=== PATIENT | male | born 1970 ===

== ENCOUNTER 2024-02-18 17:57 | Outpatient (REF) | payer SELFPAY ==
--- OUTSIDE RECORDS SUMMARY | 2024-02-18 18:01 | XMS_ITS | Continuity of Care Document ---
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 Name Role Phone RikiLuiz Primary Care Physician Encounter NCTY_[place] Date(s): 03/26/23 - 03/26/[address] [phone] Discharge Disposition: Home or Self Care Attending Physician: Eli Navarrete NP Admitting Physician: Eli aNvarrete NP Referring Physician: Eli Navarrete NP Allergies, Adverse Reactions, Alerts Substance Reaction Severity Status nicotine 1 Rash Unknown Active traMADol Angry outburst Fatigue Nausea Headache Unknown Active 1Has to be the clear patch Assessment and Plan Future Appointments Immunizations Given and Recorded Vaccine Date Status Refusal Reason tetanus/diphth/pertuss (Tdap) adult/adol 10/24/10 Recorded tetanus-diphth toxoids (Td) adult/adol 03/20/06 Re corded tetanus-diphth toxoids (Td) adult/adol 11/18/95 Re corded Medications betamethasone dipropionate 0.05% topical cream 1 [place], Topical, BID, # 50 g, 1 Refill(s), Pharmacy: [facility] Start Date: 02/06/23 Status: Ordered gabapentin 300 mg oral capsule 300 mg = 1 cap, Oral, TID, # 90 cap, 5 Refill(s), Pharmacy: [facility] Start Date: 02/17/23 Status: Ordered lisinopril 20 mg oral tablet 20 mg = 1 tab, Oral, Daily, # 90 tab, 3 Refill(s), Pharmacy: [facility] Start Date: 10/23/22 Status: Ordered methylphenidate 20 mg/8 hr oral tablet, extended release 20 mg = 1 tab, Oral, BID, # 60 tab, 0 Refill(s), Pharmacy: [facility] [place] Start Date: 03/18/23 Status: Ordered Problem List Condition Confirmation Course Effective Dates Status H ealth Status Informant Arthropathy Confirmed Active Asthma Confirmed Active Attention deficit hyperactivity disorder, combined type Confirmed Active Chronic constipation Confirmed Active Depressive disorder Confirmed Active Long-term current use of drug therapy Confirmed Active Generalized anxiety disorder Confirmed Active Hypertensive disorder Confirmed Active Hypertension Confirmed Active Nocturnal hypoxemia Confirmed Active Impaired fasting glucose Confirmed Active Inguinal hernia without obstruction or gangrene 1, 2 Confirmed Active Insomnia Confirmed Active Left lower quadrant pain Confirmed Active Low back pain Confirmed Active 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 Microscopic hematuria Confirmed Active Mononeuritis multiplex 3 Confirmed Active Multiple joint pain Confirmed Active Neck pain Confirmed Active Nicotine dependence Confirmed 12/17/18 Active Non-organic sleep disorder Confirmed Active Left arm numbness Confirmed Active Obesity Confirmed Active Obstructive sleep apnea, adult Confirmed Active Obstructive sleep apnea Confirmed Active Osteoarthritis Confirmed Active Left arm pain Confirmed Active Therapeutic drug monitoring assay Confirmed Active PLMD (periodic limb movement disorder) Confirmed Active Recurrent inguinal hernia Confirmed Active Restless legs syndrome Confirmed Active Sciatica Confirmed Active Social phobia Confirmed Active Tobacco user Confirmed Active 1recurrent 2unilateral 3of upper limb Procedures Procedure Date Related Diagnosis Body Site Status Repair of inguinal hernia 1 02/01/17 Completed Colonoscopy 03/19/15 Completed Arthroscopic knee operation 2 08/03/11 Completed 1bilateral, recurrent 2right knee arthroscopy, partial medial meniscectomy and chondroplasty medial tibial plateau Social History Social History Type Response Tobacco Former tobacco user Tobacco Use:. Quit smoking Mar 2022 per day. Sex Male Patient Care team information Care Team Personnel Name: Luiz Lyn MD Position: Physician Member Role: Informed Provider Address: Address: [address] [place] [id number] [place] Care Team Related Persons Name: NIKKO ZAMORA Address: Home [address] [place], [phone]
--- OUTSIDE RECORDS SUMMARY | 2024-02-18 18:01 | XMS_ITS | Continuity of Care Document ---
Author Organization [facility] Address [address] [place] [address] Care Team Providers Care Product Support Manager Name Role Phone Luiz Lyn Primary Care Physician Encounter NCTY_[place] Date(s): 01/26/23 - 01/26/[address] [phone] Discharge Disposition: Home or Self Care Attending Physician: Luiz Lyn MD Admitting Physician: Luiz yLn MD Referring Physician: Luiz Lyn MD Allergies, Adverse Reactions, Alerts Substance Reaction Severity Status nicotine 1 Rash Unknown Active traMADol Angry outburst Fatigue Nausea Headache Unknown Active 1Has to be the clear patch Assessment and Plan Future Appointments Immunizations Given and Recorded Vaccine Date Status Refusal Reason tetanus/diphth/pertuss (Tdap) adult/adol 10/24/10 Recorded tetanus-diphth toxoids (Td) adult/adol 03/20/06 Re corded tetanus-diphth toxoids (Td) adult/adol 11/18/95 Re corded Medications gabapentin 300 mg oral capsule 300 mg = 1 cap, Oral, TID, # 90 cap, 0 Refill(s), Pharmacy: [facility] [place] Start Date: 01/26/23 Status: Ordered lisinopril 20 mg oral tablet 20 mg = 1 tab, Oral, Daily, # 90 tab, 3 Refill(s), Pharmacy: [facility] [place] Start Date: 10/23/22 Status: Ordered methylphenidate 20 mg/8 hr oral tablet, extended release 20 mg = 1 tab, Oral, BID, # 60 tab, 0 Refill(s), Pharmacy: [facility] [place] Start Date: 01/26/23 Status: Ordered Problem List Condition Confirmation Course [...] 12/17/18 Active Non-organic sleep disorder Confirmed Active Obesity Confirmed Active Obstructive sleep apnea, adult Confirmed Active Obstructive sleep apnea Confirmed Active Osteoarthritis Confirmed Active Therapeutic drug monitoring assay Confirmed [...] medial meniscectomy and chondroplasty medial tibial plateau Results Laboratory List Name Date Drug Screen Urine (Drug Screen Urine w/ Reflex) 01/26/23 Most recent to oldest [Reference Range]: 1 U Amph Scrn [Negative] Negative 1 (01/26/23 5:38 PM) U Benzodia Scrn [Negative] Negative (01/26/23 5:38 PM) U Cocaine Scrn [Negative] Negative (01/26/23 5:38 PM) U Adeola Scrn [Negative] Negative (01/26/23 5:38 PM) U Opiate Scrn [Negative] Negative (01/26/23 5:38 PM) U Oxy Scrn [Negative] Negative (01/26/23 5:38 PM) U PCP Scrn [Negative] Negative (01/26/23 5:38 PM) U THC Scr [Negative] Negative (01/26/23 5:38 PM) U PPX Scr [Negative] Negative (01/26/23 5:38 PM) U Methadone Scr [Negative] Negative (01/26/23 5:38 PM) U Buprenorph Scr [Negative] Negative (01/26/23 5:38 PM) U mAMP Scr [Negative] Negative (01/26/23 5:38 PM) U TCA Scr [Negative] Negative (01/26/23 5:38 PM) 1Interpretive Data: These are unconfirmed screening results, to be used only for medical (i.e. treatment) purposes. These screening results must not be used for non-medical purposes (e.g. employment or legal testing). New method started 01/23/11 Test Name Reference Range (Cut-off) THC Neg (50 ng/mL) PCP Neg (25 ng/mL) RAYRAY Neg (150 ng/mL) MET Neg (500 ng/mL OPI Neg (100 ng/mL) AMP Neg (500 ng/mL BZO Neg (150 ng/mL) TCA Neg (300 ng/mL) MTD Neg (200 ng/mL) BAR Neg (200 ng/mL) OXY Neg (100 ng/mL) PPX Neg (300 ng/mL) BUP Neg (10 ng/mL) Social History Social History Type Response Tobacco Former tobacco user Tobacco Use:. Quit smoking Mar 2022 per day. Sex Male Patient Care team information Care Team Personnel Name: Luiz Lyn MD Position: Physician Member Role: Primary Care Physician Address: Address: [address] [place] [id number] [place] Care Team Related Persons Name: NIKKO ZAMORA Address: Home [address] [place], [phone]
--- OUTSIDE RECORDS SUMMARY | 2024-02-18 18:01 | XMS_ITS | Continuity of Care Document ---
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 Trailer Driver Name Role Phone RikiLuiz Primary Care Physician Encounter NCTY_[place] Date(s): 09/29/23 - 09/29/[address] [phone] Discharge Disposition: Home or Self Care Attending Physician: Yissel Painter APRN Admitting Physician: Yissel Painter APRN Referring Physician: Yissel Painter APRN Allergies, Adverse Reactions, Alerts Substance Reaction Severity [...] BID, # 50 g, 1 Refill(s), Pharmacy: [facility] Start Date: 02/06/23 Status: Ordered bisacodyl 5 mg oral tablet See Instructions, Take 10 mg total, # 2 tab, 0 Refill(s), 10/22/23 7:26:00 AM CDT, [facility], [facility], 05/07/23 13:24:00 EDT, Height Start Date: 09/25/23 Stop Date: 10/22/23 Status: Ordered DULoxetine 20 mg oral delayed release capsule 0 Refill(s) Start Date: 09/22/23 Status: Ordered gabapentin 300 mg oral capsule 300 mg = 1 cap, Oral, TID, # 90 cap, 5 Refill(s), Pharmacy: [facility] Start Date: 02/17/23 Status: Ordered lisinopril 20 mg oral tablet 20 mg = 1 tab, Oral, Daily, # 90 tab, 3 Refill(s), Pharmacy: [facility] Start Date: 10/23/22 Status: Ordered metFORMIN 500 mg oral tablet, extended release 0 Refill(s) Start Date: 09/22/23 Status: Ordered methylphenidate 20 mg/8 hr oral tablet, extended release 20 mg = 1 tab, Oral, BID, # 60 tab, 0 Refill(s), Pharmacy: [facility] Start Date: 04/22/23 Status: Ordered MiraLax oral powder for reconstitution 238 g, Oral, Daily, Mix 238 g in 64 oz of a clear non carbonated beverage. Avoid red beverages., # 238 g, 0 Refill(s), 10/22/23 7:25:00 AM CDT, Pharmacy: [facility], 190, cm, 05/07/23 13:24:00 EDT, Height Start Date: 09/25/23 Stop Date: 10/22/23 Status: Ordered Problem List Condition Confirmation Course Effective Dates Status H ealth Status Informant Arthropathy Confirmed Active Asthma Confirmed Active Attention deficit hyperactivity disorder, combined type Confirmed Active Chronic constipation Confirmed Active Depressive disorder Confirmed Active Long-term current use of drug therapy Confirmed Active Cubital tunnel syndrome on left Confirmed Active Generalized anxiety disorder Confirmed Active [...] phobia Confirmed Active Tobacco user Confirmed Active Varicose veins of legs Confirmed Active 1recurrent 2unilateral 3of upper limb Procedures Procedure Date Related Diagnosis Body Site Status Repair of inguinal hernia 1 02/01/17 Completed Colonoscopy 03/19/15 Completed Arthroscopic knee operation 2 08/03/11 Completed 1bilateral, recurrent 2right knee arthroscopy, partial medial meniscectomy and chondroplasty medial tibial plateau Results Laboratory List Name Date Drug Screen Urine 09/29/23 CBC w/ Diff 09/29/23 Comprehensive Metabolic Panel 09/29/23 Free T4 09/29/23 Hemoglobin A1c 09/29/23 Lipid Panel 09/29/23 Thyroid Stimulating Hormone 09/29/23 Automated Diff 09/29/23 Most recent to oldest [Reference Range]: 1 WBC [5.0-10.0 x10^3/mcL] 8.6 x10^3/mcL (09/29/23 11:52 AM) RBC [4.6-6.0 x10^6/mcL] 5.4 x10^6/mcL (09/29/23 11:52 AM) Neutro Auto [40.0-75.0 %] 57.9 % (09/29/23 11:52 AM) Lymph Auto [20.0-50.0 %] 29.9 % (09/29/23 11:52 AM) Sharp Auto [2.0-15.0 %] 10.6 % (09/29/23 11:52 AM) Basophil Auto [0.0-1.0 %] 0.5 % (09/29/23 11:52 AM) BUN [7-18 mg/dL] 17 mg/dL (09/29/23 11:52 AM) Cholesterol Total [50-200 mg/dL] 196 mg/ dL (09/29/23 11:52 AM) U Amph Scrn [Negative] Negative 1 (09/29/23 12:07 PM) LDL [0-130 mg/dL] 119 mg/dL (09/29/23 11:52 AM) Glucose Level [74-106 mg/dL] 107 mg/dL *HI* (09/29/23 11:52 AM) Potassium Level [3.5-5.1 mmol/L] 4.1 mmo l/L (09/29/23 11:52 AM) U Benzodia Scrn [Negative] Negative (09/29/23 12:07 PM) MCV [80.0-96.0 fL] 87.5 fL (09/29/23:52 AM) HDL [40-60 mg/dL] 41 mg/dL (09/29/23 11:52 AM) T4 Free [0.76-1.46 ng/dL] 0.86 ng/dL (09/29/23:52 AM) AST [15-37 unit/L] 32 unit/L (09/29/23:52 AM) ALT [16-63 unit/L] 46 unit/L (09/29/23:52 AM) MCHC [31.0-35.0 g/dL] 33.1 g/dL (09/29/23:52 AM) Sodium Level [136-145 mmol/L] 137 mmol/L (09/29/23:52 AM) Hct [41.0-51.0 %] 47.7 % (09/29/23: AM) U Cocaine Scrn [Negative] Negative (09/29/23 12:07 PM) Triglycerides [0-150 mg/dL] 182 mg/dL *HI* (09/29/23:52 AM) Calcium Level [8.5-10.1 mg/dL] 9.6 mg/dL (09/29/23:52 AM) Albumin Level [3.4-5.0 g/dL] 4.1 g/dL (09/29/23 11:52 AM) Protein Total [6.4-8.2 g/dL] 7.9 g/dL (09/29/23:52 AM) MCH [26.0-32.0 pg] 29.0 pg (09/29/23 11:52 AM) Neutro Absolute 5.0 x10^3/mcL *NA* (09/29/23:52 AM) Bilirubin Total [0.2-1.0 mg/dL] 0.7 mg/d L (09/29/23 11:52 AM) Hgb [14.0-18.0 g/dL] 15.8 g/dL (09/29/23 11:52 AM) Alk Phos [46-146 unit/L] 60 unit/L (09/29/23:52 AM) Platelets [130-450 x10^3/mcL] 260 x10^3/ mcL (09/29/23 11:52 AM) CO2 [21-32 mmol/L] 29 mmol/L (09/29/23 11:52 AM) U Adeola Scrn [Negative] Negative (09/29/23 12:07 PM) TSH [0.358-3.740 mcIntlUnit/mL] 1.394 mc IntlUnit/mL (09/29/23:52 AM) U Opiate Scrn [Negative] Negative (09/29/23 12:07 PM) eGFR Non-AA [>=60] 76 (09/29/23 11:52 AM) eGFR AA [>=60] 76 (09/29/23:52 AM) Hemoglobin A1c [4.0-5.6 %] 6.4 % 2 *HI* (09/29/23: AM) Chloride Level [98-107 mmol/L] 99 mmol/L (09/29/23: AM) U Oxy Scrn [Negative] Negative (09/29/23 12:07 PM) U PCP Scrn [Negative] Negative (09/29/23 12:07 PM) RDW-CV [11.5-14.5 %] 13.6 % (09/29/23:52 AM) U THC Scr [Negative] Negative (09/29/23 12:07 PM) U Methadone Scr [Negative] Negative (09/29/23 12:07 PM) Imm Gran Auto [0.0-0.9 %] 0.2 % (09/29/23:52 AM) U mAMP Scr [Negative] Negative (09/29/23 12:07 PM) U TCA Scr [Negative] Negative (09/29/23 12:07 PM) Creatinine Level [0.70-1.30 mg/dL] 1.15 mg/dL (09/29/23:52 AM) Eos, Auto [1.0-6.0 %] 0.9 % *LOW* (09/29/23 11:52 AM) 1Interpretive Data: These are unconfirmed screening results, [...] Neg (300 ng/mL) BUP Neg (10 ng/mL) 2Interpretive Data: New test method effective 08-18-23. Establishment of new HA1c baseline is recommended. The following A1c interpretive data reflect the 2017 Citizen [place] Diabetes Association (ADA) guidelinesand will be reported with each A1c result: Normal: <5.7% Prediabetes: 5.7 - 6.4% Diagnostic for diabetes (if confirmed): ???6.5% Social History Social History Type Response Tobacco Former tobacco user Tobacco Use:. Quit smoking Mar 2022 per day. Sex Male Patient Care team information Care Team Personnel Name: Luiz Lyn MD Position: Physician Member Role: Primary Care Physician Address: Address: [address] [place] [phone] [place] Care Team Related Persons Name: NIKKO ZAMORA Address: Home [address] [place], [phone]
--- OUTSIDE RECORDS SUMMARY | 2024-02-18 18:01 | XMS_ITS | Continuity of Care Document ---
Author Organization [facility] Address [address] [place] [address] Care Team Providers Care Water Softener Installer Name Role Phone Luiz Lyn Primary Care Physician [phone] Encounter [facility] Date(s): 02/25/23 - 04/15/[address] [address] Encounter Diagnosis Lateral epicondylitis, left elbow(Final) - Pain in left elbow(Final) - Muscle weakness (generalized)(Final) - Paresthesia of skin(Final) - Discharge Disposition: Home or Self Care Attending Physician: David Piper MD Admitting Physician: David Piper MD Referring Physician: David Piper MD Allergies, Adverse Reactions, Alerts Substance Reaction [...] BID, # 50 g, 1 Refill(s), Pharmacy: [facility] Start Date: 02/06/23 Status: Ordered gabapentin 300 mg oral capsule 300 mg = 1 cap, Oral, TID, # 90 cap, 5 Refill(s), [facility] [facility] Start Date: 02/17/23 Status: Ordered lisinopril 20 mg oral tablet 20 mg = 1 tab, Oral, Daily, # 90 tab, 3 Refill(s), Pharmacy: [facility] Start Date: 10/23/22 Status: Ordered methylphenidate 20 mg/8 hr oral tablet, extended release 20 mg = 1 tab, Oral, BID, # 60 tab, 0 Refill(s), Pharmacy: [facility] Start Date: 03/18/23 Status: Ordered Problem List [...] smoking Mar 2022 per day. Sex Male Occupational therapy Progress note * Kenzie Samuels/Clari CHT: PERFORM, MODIFY, MODIFY Event Display: Occupational Therapy Progress Note Authored Date: [id number] *Visit Type: Progress and discharge summary *Referring Diagnosis: L lateral epicondylitis *Therapy Diagnosis: L elbow pain, weakness, paresthesia *Subjective: ??Pt arrived on time for his appointment. His arm has been good and he is able to do what he needs to do at home without too much problems. He replaced the hammer with a 2.5# weight and it is working well. Patient Case History:??Pt was receiving PT to get back to an exercises routine he could do. He was doing triceps press up over his head and in front of him using bands to add resistance and experienced gradual onset of pain, starting in mid January 2023. Pt saw his PCP, referred to Dr Duong, who referred him to OT. Pertinent Past Medical History: Nicotine dependence Arthropathy Asthma Attention deficit hyperactivity disorder, combined type Chronic constipation Degenerative joint disease (DJD) of lumbar spine Depressive disorder Generalized anxiety disorder Hypertension Hypertensive disorder Impaired fasting glucose Inguinal hernia without obstruction or gangrene Insomnia Left arm numbness Left arm pain Left lower quadrant pain Long-term current use of drug therapy Low back pain Microscopic hematuria Mononeuritis multiplex Multiple joint pain Neck pain Nocturnal hypoxemia Non-organic sleep disorder Obesity Obstructive sleep apnea Obstructive sleep apnea, adult Osteoarthritis PLMD (periodic limb movement disorder) Recurrent inguinal hernia Restless legs syndrome Sciatica Social phobia Therapeutic drug monitoring assay Tobacco user Pertinent Past Surgical History: Repair of inguinal hernia: 02/02/17 Colonoscopy: 03/20/15 Arthroscopic knee operation: 08/04/11 Pertinent Medications:??NA Pertinent Allergies: nicotine (Rash) traMADol (Headache,Nausea,Fatigue,Angry outburst) Clinically Complex Situations:??Pt has multiple medical conditions with multiple sites of pain Prior Therapy:??None for this Dx Prior Diagnostic Results: None for this Dx, had NCS years ago. Prior Treatment:??Had PT for general conditioning exercises. Precautions: Standard precautions *Barriers to Education:??None identified Special Communication Needs:??None identified. Behavior:??Appropriate Occupational Profile: Current Occupation: ??Pt is not working, has not worked for ~ 3 years due to mental health issues (Type 2 personality disorder) and ADHD. Current Job Description and Requirements: Current Restrictions: Home Environment/Set Up:??Pt lives in an apartment. Household Members/Support Network: ??Pt lives at home with his and is responsible for cooking and house cleaning. Pt is exercising 4x/wk and does miniature work outside. Pt enjoys watching TV,playing video games, and taking care of his pets. Home Equipment:??NA *Previous Level of Function: ??Pt was able to use his L UE for all ADLs, sweet pickle maker things, move his arm around without difficulties, was doing 30-35# curls, 5 reps then switching arm. 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 Pain: Location: ??L lateral epicondyle area, origin of forearm extensor muscles, posterior aspect of elbow, dorsal wrist and distal aspect of forearm can be achy and stiff but not as bad as it was. Nature: ??Pain is described as burning and occasional quick sharp pain (only over lateral epicondyle area),aching pain feeling stiff. Behavior: ??Pt is taking a cheap version of Exedrin (Acetaminophen, caffein and Aspirin called Back and Body)not even once a week, taking Gabapentin, not taking any other pain meds, using [place] Forman at times Severity: ??Current pain is 2/10, at the worst it can spike to a 7-8/10 if he is doing too muc, quick spike and then down to baseline, usual average at rest during the day is ~2/10 Other: ??Sleep is baseline but pt reports stiffness and pain in the morning when waking up. Pt reports he tends to be stiff and sore in the morning, as it is for his whole body. Palpation:??Mild tenderness to palpation over L lateral epicondyle. Skin Inspection: ??wfl Edema: None at this time. Elbow ROM/Strength: R AROM L AROM R PROM L PROM R Strength L Strength Flexion ??wfl ??wfl ??5 ??5 Extension ??wfl ??wfl ??5 ??5 Supination ??wfl ??wfl ??5 ??4+ with mild discomfort Pronation ??wfl ??wfl ??5 ??5 with mild discomfort Wrist ROM/Strength: R AROM L AROM R PROM L PROM R Strength L Strength Flexion ??wfl ??wfl ??5 ??5 Extension ??wfl ??wfl ??5 ??5 with mild discomfort Ulnar Deviation ??wfl ??wfl ??5 ??5 Radial Deviation ??wfl ??wfl ??5 ??5 Elbow Special Tests: Test Right Left Elbow Flexion Test Hyperextension Test Mill???s Test/Passive Tennis Elbow Test ??(-) ?? (-) Pinch Club Room Attendant Test Cozen???s Test/Resistive Tennis Elbow Test ??(-) ??mild (+) Tinel Sign Valgus Stress Test Varus Test Maudsley Test ??(-) ??mild (+) Tello Test Resisted Elbow Extension Resisted Small Finger FDP Finger Flexion Sign Froment???s Sign Neurodynamic Tests: Median Nerve Ulnar Nerve Radial Nerve Elbow/Forearm Sensation:??Pt reports paresthesia over the dorsum of his hand and fingers and the ulnar side of his hand, has not been present in this past week, may occur occasionally. Club Room Attendant Strength (lbs): Trial #1 Trial #2 Trial #3 Average R L R L R L R L Dynamometer Position #1 Dynamometer Position #2 ??116 ??85 Dynamometer Position #3 Dynamometer Position #4 In stress position ??110 ??96 Club Room Attendant Strength Normative Values (lbs): Club Room Attendant Strength Normative Values (lbs): Male ages 50-54: right mean 113.6 with SD 18.1 and left mean 101.9 with SD 17.0 Orthosis: Pt is wearing his counterforce elbow band and his wrist orthosis all day when he uses hisarm, taking it off in the evening. Upper Quadrant Screen: B shoulder AROM wfl but pt reports bursitis in B shoulders *Patient Education: OT POC consisting of discharge from OT at this time, gradual weaning of counterforce elbow band and wrist orthosis as tolerated, continue with his exercise program, review of bodymechanics and importance of avoiding tension over forearm extensor muscle. Previously provided education: Home program updated with active stretch #3, resistive wrist flex/ext, elbow flex/ext, pro/sup and resistive lymphedema therapist therex, purpose and wear and care of wrist cock up to be worn continuously except during hygiene and exercises., pt to perform active stretch #2 with cuesto avoid burning sensation, correct technique for active stretch #3, purpose and wear and care of kinesiology tape, patient to bring in his wrist orthosis at next session to assess fit., active stretches, goal and purpose of IASTM, self IASTM technique including avoiding bony prominences and anterior elbow,??OT plan of care, wear and care of counterforce elbow band, manual massage and use of heat over left forearm and elbow, body mechanics education including lifting items close to his body, with his palm down. *Occupational Therapy Assessment: Patient is a 52 years old man referred to OT by Dr. Duong with a diagnosis of left lateral epicondylitis. He reports onset in mid January 2023 when he was working outlifting weights up to 35 pounds. Patient lives at home with his and is receiving disabilities.Patient has made significant progress since his last progress summary 2 weeks ago as evidenced by decreased pain which is now minimal, decreased burning sensation at rest, increased wrist strength and no pain with resistive exercises/activities, along with decreased functional difficulties at home.We agreed that patient has gained maximum benefit from skilled OT services and will therefore be discharged from OT at this time. Intervention consisted of manual therapy, ultrasound, body mechanics education, therapeutic exercises, home program, provision of counterforce elbow band and wrist orthosis, along with patient education, for a total of 11 visits, between 03/03/2023 and today. *Rehab Potential: NA *Functional Outcome Measure: FOM: Patient Rated Tennis Elbow Evaluation (PRTEE) ? Score: Current impairment level is 27.5% (compared to 37.5% on his last progress summary and 71.5% on his IE)), with patient reporting difficulty with turning a door knob, carrying a grocery bag, lifting a full cup to his mouth, opening a jar, wringing out a washcloth, personal activities, andrecreational activities including video games. Please note that patient is not wearing his wrist brace anymore when lifting a full cup to his mouth or opening a jar. *Short Term Goals: Deferred to long-term goals. *Facility Environmental Technician Goals: In 6 weeks: #1 patient will be pain-free at rest, and will report decreased pain to 3 out of 10 at the worst when cooking---MET #2 left supination, pronation, and wrist extension strength will increase to 4/5 and be pain-free, to allow patient to perform all cooking and house chores tasks---MET *Patient Goals: Get back to working out---MET, have no pain in her L elbow---MET but may have some occasional pain in his forearm muscles, only very occasional twinges in his elbow so pt feels this is MET as well. *Frequency of Treatment: NA *Intensity of Treatment (minutes):??NA *Duration of Treatment (days/weeks):??NA *Planned Treatment Interventions: NA CPT 43620: Therapeutic Exercise CPT 06782: Electrical Stimulation CPT 79787: Therapeutic Activity CPT G0283: Electrical Stimulation CPT 26772: Manual Therapy CPT 14144: Massage CPT 76696: Gait Training CPT 69533: Biofeedback CPT 29395: Neuromuscular Re-education CPT 84922: Sensory Integration CPT 25439: Self-Care/Home Management CPT 61665: Physical Performance Test CPT 24803: Ultrasound CPT 37316: Initial Orthotic Fit/Train CPT 22529: Initial Prosthetic Train *Discharge Plan: Discharge OT at this time. *Procedure Documentation: CPT 41906: Therapeutic Exercise:??34?? minutes Therapeutic exercise to promote improved joint stability, strength, endurance, and range of motion for functional ADL???s such as picking up a grocery bag: Specific education/training provided for proper technique. Measurement taken for progress summary. Home program verbally reviewed. Plan: Patient will continue with his home program only, including wearing orthosis and counterforceelbow band, using proper body mechanics and exercises. *Total Time: 34 minutes *Time In: 07:31 *Time Out: 08:05 Electronically Signed on 04/15/23 11:46 AM Kenzie Samuels/L CHT Reviewed by: Krystal Gracia Johanne OTR/L CHT: MODIFY, PERFORM, MODIFY, MODIFY Event Display: Occupational Therapy Progress Note Authored Date: [id number] *Visit Type: OT treatment *Referring Diagnosis: L lateral epicondylitis *Therapy Diagnosis: L elbow pain, weakness, paresthesia *Subjective: Pt saw Dr Duong on 04.06.23. He was happy with the progress so did not have an injection. He was told to continue with what he is doing and he can call back if he runs into problems. He can now sweet pickle maker the frying chaves with food in it without too much problems if he is wearing his brace. But if he does not wear it, it will burn. He was able to put dishes away and get ready this morning without his brace and did ok. Wrist stretches are easier and do not burn. But he still feels weakand stiff. Patient Case History:??Pt was receiving PT to get back to an exercises routine he could do. He was doing triceps press up over his head and in front of him using bands to add resistance and experienced gradual onset of pain, starting in mid January 2023. Pt saw his PCP, referred to Dr Duong, who referred him to OT. Precautions: Standard Pain: Current pain is 3/10, at the highest in the past week it was 10/10 when moving the wrong way or trying to do too much. *Objective Measures and Interventions: CPT 70470: Ultrasound (1:1):?10 minutes Ultrasound to promote tissue relaxation, local blood flow, scar tissue remodeling, and to reduce local swelling, chronic inflammation and pain within the following parameters: 50%?ultrasound treatment (#8) at 0.8?w/cm2 at 3?Mhz for the following location and time (min): L lateral epicondyle area x6 minutes CPT 32796: Therapeutic Exercise:??15 minutes Therapeutic exercise to promote improved joint stability, strength, endurance, and range of motion for functional ADL???s such as cooking. Specific education/training provided for proper technique. Active stretch #4 3x with no discomfort Passive stretch #1, #2, #3, with #3 being the most appropriate tension x3 Resistive lymphedema therapist therex using red putty 15x Resistive wrist flex/ext using green tubing, 15x each Resistive pro/sup using 20 oz hammer, 10x each with cues to maintain wrist neutral Resistive elbow flex/ext using green tubing 15x CPT 79126: Manual Therapy:??5 minutes Manual therapy to decrease tissue tension, decrease pain, decrease edema, promote healthy joint mobility and improve range of motion for functional ADL???s such as carrying grocery bags. Treatment techniques utilized today included: IASTM to L forearm extensor muscles and triceps, with UE positioned in pronation using concave surface of the instrument, applied at 45* angle, with moderate to max pressure applied, for middle/deep fascia, lotion used as skin lubricant, with curvilinear strokes, well tolerated with minimal tightness.. *Patient??Education: Home program updated with active stretch #3, resistive wrist flex/ext, elbow flex/ext, pro/sup and resistive lymphedema therapist therex as per written information provided. Previously Provided Education: Purpose and wear and care of wrist cock up to be worn continuously except during hygiene and exercises., pt to perform active stretch #2 with cues to avoid burning sensation, correct technique for active stretch #3, purpose and wear and care of kinesiology tape, patient to bring in his wrist orthosis at next session to assess fit., active stretches, goal and purposeof IASTM, self IASTM technique including avoiding bony prominences and anterior elbow,??OT plan of care, wear and care of counterforce elbow band, manual massage and use of heat over left forearm andelbow, body mechanics education including lifting items close to his body, with his palm down. *Occupational Therapy Assessment:??Pt is progressing as evidenced by decreased pain and increased ability to use his L UE for cooking tasks, with and without his wrist orthosis and his counterforce elbow band. He demonstrated good understanding of his home program. *Plan:??Assess review and update home program, monitor response to strengthening therex, continue with US and MT as appropriate. *Total Time: 30 minutes *Time In: 07:59 *Time Out: 08:29 Electronically Signed on 04/08/23 08:39 AM Kenzie Samuels OTR/L CHT * Kenzie Samuels OTR/L CHT: PERFORM, MODIFY, MODIFY, MODIFY, MODIFY, MODIFY, MODIFY, MODIFY Event Display: Occupational Therapy Progress Note Authored Date: [id number] *Visit Type: Progress summary *Referring Diagnosis: L lateral epicondylitis *Therapy Diagnosis: L elbow pain, weakness, paresthesia *Subjective: ??Pt arrived on time for his appointment. His arm is not as sore, and it does not burnas much. It looks like the wrist brace is helping. Will see Dr Duong on 04.06.23. Patient Case History:??Pt was receiving PT to get back to an exercises routine he could do. He was doing triceps press up over his head and in front of him using bands to add resistance and experienced gradual onset of pain, starting in mid January 2023. Pt saw his PCP, referred to Dr Duong, who referred him to OT. Pertinent Past Medical History: Nicotine dependence Arthropathy Asthma Attention deficit hyperactivity disorder, combined type Chronic constipation Degenerative joint disease (DJD) of lumbar spine Depressive disorder Generalized anxiety disorder Hypertension Hypertensive disorder Impaired fasting glucose Inguinal hernia without obstruction or gangrene Insomnia Left arm numbness Left arm pain Left lower quadrant pain Long-term current use of drug therapy Low back pain Microscopic hematuria Mononeuritis multiplex Multiple joint pain Neck pain Nocturnal hypoxemia Non-organic sleep disorder Obesity Obstructive sleep apnea Obstructive sleep apnea, adult Osteoarthritis PLMD (periodic limb movement disorder) Recurrent inguinal hernia Restless legs syndrome Sciatica Social phobia Therapeutic drug monitoring assay Tobacco user Pertinent Past Surgical History: Repair of inguinal hernia: 02/02/17 Colonoscopy: 03/20/15 Arthroscopic knee operation: 08/04/11 Pertinent Medications:??NA Pertinent Allergies: nicotine (Rash) traMADol (Headache,Nausea,Fatigue,Angry outburst) Clinically Complex Situations:??Pt has multiple medical conditions with multiple sites of pain Prior Therapy:??None for this Dx Prior Diagnostic Results: None for this Dx, had NCS years ago. Prior Treatment:??Had PT for general conditioning exercises. Precautions: Standard precautions *Barriers to Education:??None identified Special Communication Needs:??None identified. Behavior:??Appropriate Occupational Profile: Current Occupation: ??Pt is not working, has not worked for ~ 3 years due to mental health issues (Type 2 personality disorder) and ADHD. Current Job Description and Requirements: Current Restrictions: Home Environment/Set Up:??Pt lives in an apartment. Household Members/Support Network: ??Pt lives at home with his and is responsible for cooking and house cleaning. Pt is exercising 4x/wk and does miniature work outside. Pt enjoys watching TV,playing video games, and taking care of his pets. Home Equipment:??NA *Previous Level of Function: ??Pt was able to use his L UE for all ADLs, sweet pickle maker things, move his arm around without difficulties, was doing 30-35# curls, 5 reps then switching arm. *Current Level of Function:??Pt reports difficulty with holding a frying chaves if there is food in it(it's a bit more manageable), picking up grocery bags and gallon of milk (definitely not as bad with the wrist brace on) is also the same, driving (easier now), house chores (also easier), any use ofhis L arm is painful making all ADLs difficult but it has been a lot easier with the wrist brace, di fficult to pinch and hold at the same time like holding cards or a piece of paper. Overall his arm is much better. Pain: Location: ??L lateral epicondyle area, origin of forearm extensor muscles, posterior aspect of elbow, dorsal wrist and distal aspect of forearm can be achy but not as bad as it was. Nature: ??Pain is described as burning and occasional stabbing pain (only over lateral epicondyle area), throbbing and aching pain, present at rest and worse with use and toward the end of the day. Behavior: ??Pt is taking a cheap version of Exedrin (Acetaminophen, caffein and Aspirin called Back and Body)maybe a couple times a week, not taking any other pain meds, using [place] Forman at times Severity: ??Current pain is 3/10, at the worst it can spike to a 10/10 if he bumps it or if he tries to do too much, usually at rest if he has not done too much during the day, it is about 5-6/10 Other: ??Sleep is sometimes disturbed due to his arm, especially when he gets up in the morning (stiffnessand pain in the morning when waking up). Pt reports he tends to be stiff and sore in the morning, as it is for his whole body. Palpation:??Tenderness to palpation over L lateral epicondyle, to a lesser extent in forearm extensor muscles (with pt reporting an ache with palpation) Skin Inspection: ??wfl Edema:Pt reports increased edema in L elbow toward the end of the day, it feels bigger. None significant at this time. Elbow ROM/Strength: R AROM L AROM R PROM L PROM R Strength L Strength Flexion ??wfl ??wfl ??5 ??5 Extension ??wfl ??wfl but sore at end range (not burning anymore) ??5 ??5 Supination ??wfl ??wfl ??5 ??4 with mild burning )not as bad as it was) Pronation ??wfl ??wfl ??5 ??4 with mild burning AROM wfl Wrist ROM/Strength: R AROM L AROM R PROM L PROM R Strength L Strength Flexion ??wfl ??wfl ??5 ??5 Extension ??wfl ??wfl ??5 ??5 with mild burning Ulnar Deviation ??wfl ??wfl ??5 ??5 with mild burning Radial Deviation ??wfl ??wfl ??5 ??5 with burning Elbow Special Tests: Test Right Left Elbow Flexion Test Hyperextension Test Mill???s Test/Passive Tennis Elbow Test ??(-) ?? (-) Pinch Club Room Attendant Test Cozen???s Test/Resistive Tennis Elbow Test ??(-) ??mild (+) Tinel Sign Valgus Stress Test Varus Test Maudsley Test ??(-) ??mild (+) Tello Test Resisted Elbow Extension Resisted Small Finger FDP Finger Flexion Sign Froment???s Sign Neurodynamic Tests: Median Nerve Ulnar Nerve Radial Nerve Elbow/Forearm Sensation:??Pt reports decreased paresthesia over the dorsum of his hand and fingers,including the ulnar side of his hand, comes and goes, has been present since December. Club Room Attendant Strength (lbs): Trial #1 Trial #2 Trial #3 Average R L R L R L R L Dynamometer Position #1 Dynamometer Position #2 ??134 ??93 with mild pain Dynamometer Position #3 Dynamometer Position #4 In stress position ??130 ??89 with mild pain Club Room Attendant Strength Normative Values (lbs): Club Room Attendant Strength Normative Values (lbs): Male ages 50-54: right mean 113.6 with SD 18.1 and left mean 101.9 with SD 17.0 Orthosis: Pt is wearing his counterforce elbow band and his wrist orthosis all day when he uses hisarm, taking it off in the evening. He is unsure about the kinesiology tape as it does not stay on very long. Upper Quadrant Screen: B shoulder AROM wfl but pt reports bursitis in B shoulders *Patient Education: OT POC, progression of conservative management protocol Previously provided education: Purpose and wear and care of wrist cock up to be worn continuously except during hygiene and exercises., pt to perform active stretch #2 with cues to avoid burning sensation, correct technique for active stretch #3, purpose and wear and care of kinesiology tape, patient to bring in his wrist orthosis at next session to assess fit., active stretches, goal and purposeof IASTM, self IASTM technique including avoiding bony prominences and anterior elbow,??OT plan of care, wear and care of counterforce elbow band, manual massage and use of heat over left forearm andelbow, body mechanics education including lifting items close to his body, with his palm down. *Occupational Therapy Assessment: Patient is a 52 years old man referred to OT by Dr. Duong with a diagnosis of left lateral epicondylitis. He reports onset in mid January 2023 when he was working outlifting weights up to 35 pounds. Patient lives at home with his and is receiving disabilities.Patient has made significant progress since his last progress summary 2 weeks ago as evidenced by increased lymphedema therapist strength, decreased pain which he attributes mostly to wearing his wrist orthosis, decreased burning sensation at rest, increased wrist strength, along with decreased functional difficulties at home. We agreed that pt is still a good candidate for skilled OT services to maximize left upper extremity function, control pain and allow him to be independent with all of his ADLs at home. *Rehab Potential: Good?to reach the established goals *Functional Outcome Measure: FOM: Patient Rated Tennis Elbow Evaluation (PRTEE) ? Score: Current impairment level is 37.5% (compared to 71.5% on his last progress summary), with patient reporting difficulty with turning a door knob, carrying a grocery bag, wringing out a washcloth, personal activities, and recreational activities including video games. *Short Term Goals: In 4 weeks: #1 patient will report decreased pain to 2 out of 10 at the worst when at rest---NOT MET yet #2 patient will report decreased pain to 5 out of 10 at the worst when carrying a light grocery bag---MET #3 left supination strength will increase to 4/5 to facilitate cooking task---MET #4 left lymphedema therapist strength will increase by 10 pounds and be pain-free to allow him to open jars---MET with his wrist brace on #5 patient will be independent and adhere to his home program as evidenced by demonstration of proper technique---MET Deferred to long-term goals. *Facility Environmental Technician Goals: In 6 weeks: #1 patient will be pain-free at rest, and will report decreased pain to 3 out of 10 at the worst when cooking---NOT MET yet but making progress #2 left supination, pronation, and wrist extension strength will increase to 4/5 and be pain-free, to allow patient to perform all cooking and house chores tasks---MAKING PROGRESS Above LTGs are still appropriate with a new time frame of 4 weeks *Patient Goals: Get back to working out, have no pain in her L elbow---MAKING PROGRESS *Frequency of Treatment: Once a week *Intensity of Treatment (minutes):??30 minutes *Duration of Treatment (days/weeks):??4 weeks *Planned Treatment Interventions: X CPT 45701: Therapeutic Exercise will focus on home program, wrist stretches, resistive exercises astolerated, kinesiology tape as appropriate, will use conservative management protocol as a guideline CPT 30257: Electrical Stimulation X CPT 69819: Therapeutic Activity body mechanics education, activity modification as appropriate CPT G0283: Electrical Stimulation X CPT 61306: Manual Therapy STM, IASTM as appropriate CPT 72894: Massage CPT 79166: Gait Training CPT 22454: Biofeedback CPT 50807: Neuromuscular Re-education CPT 43451: Sensory Integration CPT 48514: Self-Care/Home Management CPT 16111: Physical Performance Test X CPT 32105: Ultrasound 3 MHz 50% pulsed 0.8 W/cm?? x 6-minute over left lateral epicondyle area appropriate CPT 03824: Initial Orthotic Fit/Train CPT 90798: Initial Prosthetic Train *Discharge Plan: Upon achieving goals or maximal benefit of therapy services. *Procedure Documentation: CPT 22645: Therapeutic Exercise:??28?? minutes Therapeutic exercise to promote improved joint stability, strength, endurance, and range of motion for functional ADL???s such as picking up a grocery bag: Specific education/training provided for proper technique. Measurement taken for progress summary. CPT 73213: Ultrasound (1:1):??10??minutes Ultrasound to promote tissue relaxation, local blood flow, scar tissue remodeling, and to reduce local swelling, chronic inflammation and pain within the following parameters: 50%?ultrasound treatment (#7) at 0.8?w/cm2 at 3?Mhz for the following location and time (min): L lateral epicondyle area x6 minutes CPT 10174: Manual Therapy:??10 minutes Manual therapy to decrease tissue tension, decrease pain, decrease edema, promote healthy joint mobility and improve range of motion for functional ADL???s such as carrying grocery bags: Treatment techniques utilized today included: IASTM to L forearm extensor muscles and triceps, with UE positioned in pronation using concave surface of the instrument, applied at 45* angle, with mod/max pressure applied, for middle/deep fascia, lotion used as skin lubricant, with linear strokes, well tolerated with mild/moderate tightness. *Total Time: 48 minutes *Time In: 09:42 *Time Out: 10:30 Electronically Signed on 04/02/23 01:48 PM Kenzie Samuels/Clari CHT Reviewed by: Krystal Gracia Patient Care team information Care Team Personnel Name: Luiz Lyn MD Position: Physician Member Role: Informed Provider Address: Address: [address] [place] [phone] [place] Care Team Related Persons Name: NIKKO ZAMORA Address: [address], [id number]
--- OUTSIDE RECORDS SUMMARY | 2024-02-18 18:01 | XMS_ITS | Continuity of Care Document ---
Author Organization [facility] Address [address] [place] [address] Care Team Providers Care Furnace Converter Name Role Phone Yissel Painter Primary Care Physician Encounter [facility] Date(s): 04/20/23 - 04/20/[address] [address] Discharge Disposition: Home or Self Care Attending [...] BID, # 50 g, 1 Refill(s), Pharmacy: [facility] Start Date: 02/06/23 Status: Ordered gabapentin 300 mg oral capsule 300 mg = 1 cap, Oral, TID, # 90 cap, 5 Refill(s), Pharmacy: [facility] Start Date: 02/17/23 Status: Ordered lisinopril 20 mg oral tablet 20 mg = 1 tab, Oral, Daily, # 90 tab, 3 Refill(s), Pharmacy: [facility] Start Date: 10/23/22 Status: Ordered methylphenidate 20 mg/8 hr oral tablet, extended release 20 mg = 1 tab, Oral, BID, # 60 tab, 0 Refill(s), Pharmacy: [facility] Start Date: 03/18/23 Status: Ordered Problem List [...] tibial plateau Results Laboratory List Name Date CBC w/ Diff 04/20/23 Comprehensive Metabolic Panel 04/20/23 Hemoglobin A1c 04/20/23 Lipid Panel 04/20/23 NT- Pro BNP 04/20/23 PSA Screen 04/20/23 Troponin-I 04/20/23 Automated Diff 04/20/23 Most recent to oldest [Reference Range]: 1 WBC [5.0-10.0 x10^3/mcL] 7.3 x10^3/mcL (04/20/23 9:41 AM) RBC [4.6-6.0 x10^6/mcL] 5.4 x10^6/mcL (04/20/23 9:41 AM) Neutro Auto [40.0-75.0 %] 55.2 % (04/20/23:41 AM) Lymph Auto [20.0-50.0 %] 32.3 % (04/20/23 9:41 AM) [place] Auto [2.0-15.0 %] 10.5 % (04/20/23: AM) Basophil Auto [0.0-1.0 %] 0.4 % (04/20/23:41 AM) BUN [7-18 mg/dL] 12 mg/dL (04/20/23 AM) Cholesterol Total [50-200 mg/dL] 167 mg/ dL (04/20/23:41 AM) LDL [0-130 mg/dL] 97 mg/dL (04/20/23:41 AM) Glucose Level [74-106 mg/dL] 101 mg/dL (04/20/23: AM) Potassium Level [3.5-5.1 mmol/L] 4.1 mmo l/L (04/20/23 AM) MCV [80.0-96.0 fL] 87.6 fL (04/20/23: AM) HDL [40-60 mg/dL] 37 mg/dL *LOW* (04/20/23: AM) AST [15-37 unit/L] 21 unit/L (04/20/23 AM) ALT [16-63 unit/L] 45 unit/L (04/20/23:41 AM) MCHC [31.0-35.0 g/dL] 33.5 g/dL (04/20/23 AM) Troponin-I [0.0-76.2 pg/mL] <5.0 pg/mL (04/20/23:41 AM) Sodium Level [136-145 mmol/L] 138 mmol/L (04/20/23:41 AM) Hct [41.0-51.0 %] 47.2 % (04/20/23 AM) Triglycerides [0-150 mg/dL] 166 mg/dL *HI* (04/20/23: AM) Calcium Level [8.5-10.1 mg/dL] 9.3 mg/dL (04/20/2341 AM) Albumin Level [3.4-5.0 g/dL] 4.1 g/dL (04/20/23 9:41 AM) Protein Total [6.4-8.2 g/dL] 8.0 g/dL (04/20/23 9:41 AM) MCH [26.0-32.0 pg] 29.3 pg (04/20/23 9:41 AM) Neutro Absolute 4.0 x10^3/mcL *NA* (04/20/23:41 AM) Bilirubin Total [0.2-1.0 mg/dL] 0.6 mg/d L (04/20/23 9:41 AM) Hgb [14.0-18.0 g/dL] 15.8 g/dL (04/20/23 9:41 AM) Alk Phos [46-146 unit/L] 75 unit/L (04/20/23 9:41 AM) Platelets [130-450 x10^3/mcL] 273 x10^3/ mcL (04/20/23 9:41 AM) CO2 [21-32 mmol/L] 28 mmol/L (04/20/23 9:41 AM) eGFR Non-AA [>=60] 85 (04/20/23 9:41 AM) eGFR AA [>=60] 85 (04/20/23 9:41 AM) Hemoglobin A1c [4.0-6.0 %] 6.4 % *HI* (04/20/23 9:41 AM) NT-proBNP [0-125 pg/mL] 55 pg/mL (04/20/23:41 AM) Chloride Level [98-107 mmol/L] 102 mmol/ L (04/20/23:41 AM) RDW-CV [11.5-14.5 %] 13.2 % (04/20/23 9:41 AM) Imm Gran Auto [0.0-0.9 %] 0.4 % (04/20/23:41 AM) Slide Review Not Indicated (04/20/23:41 AM) Creatinine Level [0.70-1.30 mg/dL] 1.05 mg/dL (04/20/23 9:41 AM) PSA Total Screening [0.00-4.00 ng/mL] 0. 75 ng/mL 2 (04/20/23 9:41 AM) Eos, Auto [1.0-6.0 %] 1.2 % (04/20/23 9:41 AM) 2Interpretive Data: The testing method is an heterogeneous enzyme Immunoassay manufactured by [employer] and performed on the SMGBB system. Values obtained with different assay methods or kits may be different and cannot be used interchangeably. Test results cannot be interpreted as absolute evidence for the presence or absence of malignant disease. Social History Social History Type Response Tobacco Former tobacco user Tobacco Use:. Quit smoking Mar 2022 per day. Sex Male Patient Care team information Care Team Personnel Name: Luiz Lyn MD Position: Physician Member Role: Informed Provider Address: Address: [address] [place] [phone] Name: Yissel Painter APRN Position: No Access Member Role: Primary Care Physician Address: Address: [employer] [address] [address] [place] Care Team Related Persons Name: NIKKO ZAMORA Address: Home [address] [place], [id number]
--- OUTSIDE RECORDS SUMMARY | 2024-02-18 18:02 | XMS_ITS | Continuity of Care Document ---
Author Organization [facility] Address [address] [place] [address] Care Team Providers Care Leather Sorter Name Role Phone Luiz Lyn Primary Care Physician [facility] Date[facility] 05/07/23 - 05/07/23 [facility] [address] [place] [address] Encounter Diagnosis Nocturnal hypoxemia(Discharge Diagnosis) - 05/07/23 Obstructive sleep apnea, adult(Discharge Diagnosis) - 05/07/23 Discharge Disposition: Home or Self Care Attending Physician: Eli Navarrete INSTRUMENT CHECKER Allergies, Adverse Reactions, Alerts Substance Reaction Severity [...] BID, # 50 g, 1 Refill(s), [place] [facility] [place]: 02/06/23 Status: Ordered gabapentin 300 mg oral capsule 300 mg = 1 cap, Oral, TID, # 90 cap, 5 Refill(s), [place] [facility] [place]: 02/17/23 Status: Ordered lisinopril 20 mg oral tablet 20 mg = 1 tab, Oral, Daily, # 90 tab, 3 Refill(s), [place] [facility] [place]: 10/23/22 Status: Ordered methylphenidate 20 mg/8 hr oral tablet, extended release 20 mg = 1 tab, Oral, BID, # 60 tab, 0 Refill(s), [place] [facility] [place]: 04/22/23 Status: Ordered Problem List Condition Confirmation Course [...] medial meniscectomy and chondroplasty medial tibial plateau Vital Signs Most recent to oldest [Reference Range]: 1 Peripheral Pulse Rate [60-100 bpm] 91 bp m (05/07/23 1:24 PM) Blood Pressure [90-140/60-90 mmHg] 141/6 7mmHg *HI* (05/07/23 1:24 PM) Mean Arterial Pressure, Cuff [65-140 mmH g] 92 mmHg (05/07/23 1:24 PM) Weight 140.61 kg (05/07/23 1:24 PM) Weight Measured (lbs) 309.992 lb (05/07/23 1:24 PM) Height 190 cm (05/07/23 1:24 PM) Height/Length Measured (inches) 74.8 inc h (05/07/23 1:24 PM) BSA Measured 2.72 m2 (05/07/23 1:24 PM) Body Mass Index 38.95 kg/m2 (05/07/23 1:24 PM) Social History Social History Type Response Tobacco Former tobacco user Tobacco Use:. Quit smoking Mar 2022 per day. Sex Male Progress note * Cande Houston R: PERFORM Event Display: Progress Note - Physician Authored Date: [id number] * Cande Houston R: PERFORM Event Display: Progress Note - Physician Authored Date: [id number] * Cande Houston R: PERFORM Event Display: Progress Note - Physician Authored Date: [id number] Physician Outpatient Note * Eli Navarrete INSTRUMENT CHECKER: PERFORM Event Display: Office Clinic Note Physician Authored Date: [id number] CHIDI ZAMORA :1970 Age:52 years Sex:Male Visit Date:05/07/2023 Primary Care Physician: Luiz Lyn MD Chief Complaint titration psg results History of Present Illness 52 years??male??here for sleep study results ?? TODAY: Patient is using his CPAP nightly, trying to get more total sleep hours at night. His titration study went well. ?? He recently saw Dr. Naylor for cardiology for dizzy spells. He started seeing a new PCP, Dr. Painter Review of Systems A 10-point REVIEW OF SYSTEM was obtained and reviewed, includes CONSTITUTIONAL, EYES, NOSE, THROAT,RESPIRATORY, HEART, GASTROINTESTINAL, UROLOGIC, MUSCULOSKELETAL, PSYCHIATRY, SKIN systems. Pertinent symptoms are discussed in history, otherwise negative. Physical Exam Vitals & Measurements HR:??91??(Peripheral)?? BP:??141/67?? SpO2:??94%?? HT:??190??cm?? WT:??140.61??kg?? BMI:??38.95?? BSA:??2.72?? General:??well appearing, appearing stated age, no acute distress,??obese??build HEENT: atraumatic skull, anicteric RESPIRATORY: quiet respiration, able to speak in full sentences without dyspnea, no accessory muscle use SKIN: no facial skin rash, no facial skin lesions PSYCHIATRIC: well groomed, fluent speech, good insight, linear thought process, good eye contact,balanced??affect NEUROLOGIC: alert, oriented, symmetric facial expression Clinic Assessment/Plan 1.??Obstructive sleep apnea, adult??G47.33 Chidi Zamora is a pleasant 52 year old male here for titration study results. Titration PSGon 03/19/23 showed Optimal pressure from 9-14 cmH2O which resolved significant apneas, hypopneas, snoring and desaturations including during supine REM sleep. Adequate oxygenation was maintained on tested pressures. ?? Download data reviewed and discussed with the patient. He has excellent compliance and reduction inAHI, tx AHI 1.9/hr. Will continue auto CPAP 9 to 16cm H20 given his median pressures and comfort. He has minimal to no air leak and his Airfit F20 Medium fits him well. ?? He feels he is benefitting from CPAP, sleeps more soundly and he can breathe more easily at night. Does report some dry mouth in the morning for which I recommended raising his humidity and running an in-room humidifier, especially as we move into the dry winter season. We also discussed replacing his PAP supplies regularly and cleaning his supplies. 2.??Nocturnal hypoxemia??G47.34 TAMARA and hypoxemia well treated on CPAP. ?? I provided greater than??40??minutes in the care of this patient, more than half the time was spentin [id number] counseling. ?with comorbidities of asthma, ADHD (methylphenidate 10mg), KERI, HTN, insomnia, nicotine dependence, OA, obesity, depression, social anxiety, chronic low back pain (gabapentin 100mg qhs) ? Clinical Data Reviewed: [place] Sleepiness Scale: 09/12 ?? Machine Download Data:??Resmed AirSense 10 Auto CPAP?? PAP Settings: ??Auto CPAP?9 to 16??CmH2O Date Range: ?04/04/23 -05/03/23 Days with Usage >=4 hours: ??93% Avg Usage per Day Used: ??5hr 41min Mean/Median Pressure: ?11.1 90th-tile/95th-tile Pressure: ?14.2 Median-90th%tile Leak?4.0/13.0 Avg Treatment ??AHI: ??1.9/hr ?? Sleep Clinical Timeline:? 10/15/2022: New patient sleep consult at the kind request of Dr. Luiz Lyn. Suspect Obstructive Sleep Apnea based on snoring, tossing and turning at night, nocturnal awakenings, nonrestorative sleep, daytime fatigue, crowded airway, drowsy driving, ESS 4/24 (this may be an underestimation), BerlinQuestionnaire 3/. On gabapentin 100mg qHS for chronic LBP/RLS. ?? 11/27/2022: Diagnostic PSG. Wt.: 316.8 lbs. ??BMI = 40.13 kg/m2 IMPRESSION: 1.??Moderate Obstructive Sleep Apnea, Very Severe in REM sleep, associated with very significant nocturnal hypoxemia. 2.??Overall AHI: 25.1/hr; Overall RDI: 28.6/hr; REM AHI: 52.6/hr; Supine AHI: 46/hr; Right Lateral AHI:N/A /hr; Left Lateral AHI: 18/hr; Prone AHI: N/A/hr. 3.??Mean SpO2: 86% and Giacomo SpO2: 70% on Room Air; 243.9 minutes spent with SpO2 less than or equal to 88% on Room Air. 4.??Mild Periodic Limb Movement Disorder without significant arousals. PLM index 11.4/hr. PLM arousal index 0.5/hr.?? 5.??Polysomnographic evidence consistent with Restless legs syndrome, characterized by frequent legmovements during the prolonged wake periods. 6.??Low sleep efficiency of 57% with short sleep onset latency and prolonged wake after sleep onset. 7.??Bruxism noted during this sleep study. ?? 12/10/2022:??Start auto CPAP 6 to 16cm H20 via TMS.? 02/11/2023: Adjusted pressures in office to auto CPAP 9 to 16cm H20 per download data. Also ordered titration PSG d/t significant nocturnal hypoxemia and mask air leak/fit issues. He reports he issleeping more deeply, longer hours at night, and waking up feeling refreshed. ?? 03/26/2023: CPAP Titration Study. Wt.: 312.4 lbs. ??BMI = 40.11 kg/m2.?? IMPRESSION: 1.??CPAP titration for Moderate Obstructive Sleep Apnea. 2.??Optimal pressure from 9-14 cmH2O which resolved significant apneas, hypopneas, snoring and desaturations including during supine REM sleep. Adequate oxygenation was maintained on tested pressures. 3.??No evidence of Periodic Limb Movement Disorder seen during this study. PLM index: 2.2/hr, PLM arousal index: 1.3/hr. 4.??Patient used his own Resmed Airfit F20 medium with a good fit.?? 5.??Patient struggled with hip and back pain during the last hour. He took gabapentin before sleep but its pain relief does not usually last through the night. RECOMMENDATIONS: 1.??Patient should be continued on CPAP therapy with mask of choice, heated humidification and ramp. AutoPAP ??9-14 cmH20 can be used.? 05/07/2023:?Pt doing well with CPAP, reports good quality sleep and more daytime energy. Pressures continue at auto CPAP 9 to 16cm H20 for his comfort and his TAMARA + nocturnal hypoxemia well treated. ?? Current Mask: Airfit F20 FFM DME: TMS ?? Today's Assessment and Plan: See above ?? Follow up: 1 year or sooner if needed. ?? Remote Scribed by Prema Daniel Problem List/Past Medical History Ongoing Arthropathy Asthma Attention deficit hyperactivity disorder, combined type Chronic constipation Cubital tunnel syndrome on left Degenerative joint disease (DJD) of lumbar spine Depressive disorder Generalized anxiety disorder Hypertension Hypertensive disorder Impaired fasting glucose Inguinal hernia without obstruction or gangrene Insomnia Left arm numbness Left arm pain Left lower quadrant pain Long-term current use of drug therapy Low back pain Microscopic hematuria Mononeuritis multiplex Multiple joint pain Neck pain Nicotine dependence Nocturnal hypoxemia Non-organic sleep disorder Obesity Obstructive sleep apnea Obstructive sleep apnea, adult Osteoarthritis PLMD (periodic limb movement disorder) Recurrent inguinal hernia Restless legs syndrome Sciatica Social phobia Therapeutic drug monitoring assay Tobacco user Historical Phobia Procedure/Surgical History ???Repair of inguinal hernia (02/02/2017)???Colonoscopy (03/20/2015)???Arthroscopic knee operation (08/04/2011) Medications What How Much When Why Instructions Unchanged betamethasone topical (betamethasone dipropionate 0.05% topical cream) 1 Application Topical (on the skin) 2 times a day Cubital tunnel syndrome on left Unchanged gabapentin (gabapentin 300 mg oral capsule) 1 Capsules Oral (given by mouth) 3 times a day Unchanged lisinopril (lisinopril 20 mg oral tablet) 1 tab Oral (given by mouth) Every day Unchanged methylphenidate (methylphenidate 20 mg/ 8 hr oral tablet, extended release) 1 tab Oral (given by mouth) 2 times a day Attention deficit hyperactivity disorder, combined type Allergies nicotine??(Rash) traMADol??(Angry outburst, Fatigue, Nausea, Headache) Social History Alcohol Never Electronic Cigarette/Vaping Electronic Cigarette Use: Never. Nutrition/Health Caffeine intake amount: 2 cups coffee daily. Substance Use Never Tobacco Former tobacco user Tobacco Use:. Quit smoking Mar 2022 per day. Immunizations Vaccine Date Status tetanus/diphth/pertuss (Tdap) adult/adol 10/24/2010 Recorded tetanus-diphth toxoids (Td) adult/adol 03/20/2006 Recorded tetanus-diphth toxoids (Td) adult/adol 11/18/1995 Recorded Electronically Signed on 05/07/23 02:43 PM Eli Navarrete INSTRUMENT CHECKER Electronically Signed on 05/07/23 02:21 PM Prema Daniel Patient Care team information Care Team Personnel Name: Luiz Lyn MD Position: Physician Member Role: Primary Care Physician Address: Address: [address] [place] [phone] [place] Care Team Related Persons Name: NIKKO ZAMORA Address: Home [address] [place] [address], [phone]
--- OUTSIDE RECORDS SUMMARY | 2024-02-18 18:02 | XMS_ITS | Continuity of Care Document ---
Author Organization [facility] Address [address] [place] [address] Care Team Providers Care Interline Clerk Name Role Phone Luiz Lyn Primary Care Physician Encounter NCTY_AR Date(s): 10/15/22 - 10/15/22 [facility] [address] [place] [address] Encounter Diagnosis Snoring(Discharge Diagnosis) - 10/15/22 Restless leg syndrome(Discharge Diagnosis) - 10/15/22 Discharge Disposition: Home or Self Care Attending Physician: Eli Navarrete NP Referring Physician: Luiz Lyn MD Allergies, Adverse Reactions, Alerts Substance Reaction Severity Status nicotine 1 Rash Unknown Active traMADol Angry outburst Fatigue Nausea Headache Unknown Active 1Has to be the clear patch Assessment and Plan Future Appointments Functional Status 10/15/22 Other exposure to Infectious Disease Non e Immunizations Given and Recorded Vaccine Date Status Refusal Reason tetanus/diphth/pertuss (Tdap) adult/adol 10/24/10 Recorded tetanus-diphth toxoids (Td) adult/adol 03/20/06 Re corded tetanus-diphth toxoids (Td) adult/adol 11/18/95 Re corded Medications gabapentin 100 mg oral capsule 100 mg = 1 cap, Oral, Daily, take at bedtime, # 30 cap, 3 Refill(s), Pharmacy: [facility] Start Date: 09/16/22 Status: Ordered lisinopril 10 mg oral tablet 10 mg = 1 tab, Oral, Daily, # 30 tab, 5 Refill(s), Pharmacy: [facility] Start Date: 09/16/22 Status: Ordered methylphenidate 10 mg/24 hr oral capsule, (50/50 release) extended release 10 mg = 1 cap, Oral, every morning, # 30 cap, 0 Refill(s), Pharmacy: [id number] Start Date: 09/16/22 Status: Ordered Methylphenidate Hydrochloride LA 10 mg/24 hr oral capsule, extended release 30 EA, TAKE ONE CAPSULE BY MOUTH EVERY MORNING, 0 Refill(s) Start Date: 10/02/22 Status: Ordered Problem List Condition Confirmation Course Effective Dates Status H ealth Status Informant Arthropathy Confirmed Active Asthma Confirmed Active Attention deficit hyperactivity disorder, combined type Confirmed Active Chronic constipation Confirmed Active Depressive disorder Confirmed Active Long-term current use of drug therapy Confirmed Active Generalized anxiety disorder Confirmed Active Hypertensive disorder Confirmed Active Hypertension Confirmed Active Impaired fasting glucose Confirmed Active Inguinal hernia without obstruction or gangrene 1, 2 Confirmed Active Insomnia Confirmed Active Left lower quadrant pain Confirmed Active Low back pain Confirmed Active Microscopic hematuria Confirmed Active Mononeuritis multiplex 3 Confirmed Active Multiple joint pain Confirmed Active Neck pain Confirmed Active Nicotine dependence Confirmed 12/17/18 Active Non-organic sleep disorder Confirmed Active Obesity Confirmed Active Osteoarthritis Confirmed Active Therapeutic drug monitoring assay Confirmed Active Recurrent inguinal hernia Confirmed Active Sciatica Confirmed Active Social phobia [...] Range]: 1 Peripheral Pulse Rate [60-100 bpm] 98 bp m (10/15/22 9:16 AM) Blood Pressure [90-140/60-90 mmHg] 155/9 7mmHg *HI* (10/15/22 9:16 AM) Weight 146.51 kg (10/15/22 9:16 AM) Weight Measured (lbs) 322.999 lb (10/15/22 9:16 AM) Height 188.96 cm (10/15/22 9:16 AM) Height/Length Measured (inches) 74.39 in (10/15/22 9:16 AM) BSA Measured 2.77 m2 (10/15/22 9:16 AM) Body Mass Index 41.03 kg/m2 (10/15/22 9:16 AM) Social History Social History Type Response Tobacco Former tobacco user Tobacco Use:. Quit smoking Mar 2022 per day. Sex Male Physician Outpatient Note * Eli Navarrete BENZENE WASHER: PERFORM Event Display: Office Clinic Note Physician Authored Date: [id number] ZAMORA CHIDI Guerda :1970 Age:52 years Sex:Male Visit Date:10/15/2022 Primary Care Physician: Luiz Lyn MD Chief Complaint new patient sleep consult History of Present Illness Sleep Medicine New Patient Consult pleasant 52 year old??male??who presents for sleep consultation at kind request of??Dr. Luiz Lyn ?? Past medical history includes??asthma, ADHD (methylphenidate 10mg), KERI, HTN, insomnia, nicotine dependence, OA, obesity, depression, social anxiety, chronic low back pain (gabapentin 100mg qhs) ?? PREVIOUS SLEEP EVALUATION:None? CHIEF COMPLAINT/HISTORY OF PRESENT ILLNESS: Patients reports biggest problem with sleep is??snoring, tossing and turning at night, restless legs, nocturnal awakenings, nonrestorative sleep ?? SLEEP SCHEDULE:??Bedtime 8-10 pm, Sleep onset latency??less than 30??minutes, wakes 1-3 times per night, Able to fall back asleep within??few minutes, Wake time 1-3 am. Naps??None regularly. SLEEP ENVIRONMENT:Noise from outside room wake patient up.?? SLEEP QUALITY:Poor?? DAYTIME/NEUROCOGNITIVE FUNCTION:Low energy.??Problems with??concentration and??mood.?? SLEEP RELATED THOUGHTS/BEHAVIORS:[place] active mind.Stressful thoughts interfering with sleep.Worryabout getting good night sleep._?? SLEEP BREATHING:Loud snoring.__Mouth breathing.Chronic nasal congestion.?? LEG SYMPTOMS:Legs move before sleep and/or during sleep.Leg movements worse in the evening.___Toss and turn at night.Sheets are messy after sleep.?? MOVEMENT SYMPTOMS:??Sleeptalk.. DREAM SYMPTOMS:Deny dream enacting behavior..??Deny hypnogogic or hynopompic hallucinations..??No disturbing dreams.. WEAKNESS SYMPTOMS:Deny cataplexy related symptoms.Deny sleep paralysis.?? DRIVING:Experienced drowsy driving in past related to sleep deprivation..Follows drowsy driving precautions.?? OTHER PERTINENT SYMPTOMS: ??- restarted taking methylphenidate 10mg about 1 month ago for his adhd PRODUCT/SUBSTANCE USE:??No smoking, quit recently.??Quit fall 2021. _.??Rare alcohol use.??No regular illicit drug use. 2 cups of coffee a day, 6-12 cans of caffeinated soda a day. SOCIAL HISTORY:??Disabled.??_. Review of Systems A 10-point REVIEW OF SYSTEM was obtained and reviewed, includes CONSTITUTIONAL, EYES, NOSE, THROAT,RESPIRATORY, HEART, GASTROINTESTINAL, UROLOGIC, MUSCULOSKELETAL, PSYCHIATRY, SKIN systems. Pertinent symptoms are discussed in history, otherwise negative. + SOB with activity, joint pain, claustrophobia Physical Exam Vitals & Measurements HR:??98??(Peripheral)?? BP:??155/97?? SpO2:??96%?? HT:??188.96??cm?? WT:??146.51??kg?? BMI:??41.03?? BSA:??2.77?? General well appearing??statedage, no acute distress,??obesebuild HEENT: atraumatic skull, anicteric, wears dentures, moist mucous membranes, crowded airway RESPIRATORY: quiet respiration, able to speak in full sentences without dyspnea, no accessory muscle use, SKIN: no facial skin rash, no facial skin lesions PSYCHIATRIC: well groomed, fluent speech, good insight, linear thought process, good eye contact,balanced NEUROLOGIC: alert, oriented, symmetric facial expression Assessment/Plan 1.??Snoring??R06.83 Chidi Zamora is a pleasant 52 year old male here with his for a new patient sleep consult. Suspect Obstructive Sleep Apnea based on snoring, tossing and turning at night, nocturnal awakenings, nonrestorative sleep, daytime fatigue, crowded airway, drowsy driving, ESS 4/24 (this may be an underestimation), [place] Questionnaire 3/3. Pt also gives very significant hx of RLS that is worse at night with tossing and turning as well as waking up with messy sheets. Pt was also recently restarted on methylphenidate 10mg for his ADHD. ?? We had a thorough discussion of Obstructive Sleep Apnea, including pathophysiology, associated long term cardiovascular, neurocognitive, and overall health effects, and importance of treatment. Today, we discussed what to expect on the night of his sleep study. ?? Adhere to drowsy driving precautions as applicable. ?? Weight loss encouraged. ?? Treatment options discussed. ?? Proceed with Diagnostic Polysomnogram. In-facility sleep study requested PSG Instructions: Obtain supine and lateral position sleep for comparison. Document medications taken on night of PSG. 2.??Restless leg syndrome??G25.81 Pt reports hx of RLS, is currently taking Gabapentin 100mg qHS for his chronic low back pain that is also helping his RLS. Re-eval after diagnostic PSG. I provided greater than??45??minutes in the care of this patient, more than half the time was spentin [id number] counseling. ?with comorbidities of asthma, ADHD (methylphenidate 10mg), KERI, HTN, insomnia, nicotine dependence, OA, obesity, depression, social anxiety, chronic low back pain (gabapentin 100mg qhs) ? Clinical Data Reviewed: [place] Sleepiness Scale: 11/10 ?? [place] Questionnaire: 09/19 ?? Sleep Log: Reviewed and consistent with history. ?? Sleep Clinical Timeline:? 10/15/2022: New patient sleep consult at the kind request of Dr. Luiz Lyn. Suspect ObstructiveSleep Apnea based on snoring, tossing and turning at night, nocturnal awakenings, nonrestorative sleep, daytime fatigue, crowded airway, drowsy driving, ESS 4/24 (this may be an underestimation), [place] Questionnaire 09/19. On gabapentin 100mg qHS for chronic LBP/RLS. ? Today's Assessment and Plan: See above ?? Follow up: 3 months or sooner if needed. ?? Remote Scribed by Prema Daniel ?? Future Orders 16102 Diagnostic PSG, 10/15/22, would like to schedule his sleep study on the same night as his spouse Ana Zamora, Future Order, Snoring Problem List/Past Medical History Ongoing Arthropathy Asthma Attention deficit hyperactivity disorder, combined type Chronic constipation Depressive disorder Generalized anxiety disorder Hypertension Hypertensive disorder Impaired fasting glucose Inguinal hernia without obstruction or gangrene Insomnia Left lower quadrant pain Long-term current use of drug therapy Low back pain Microscopic hematuria Mononeuritis multiplex Multiple joint pain Neck pain Nicotine dependence Non-organic sleep disorder Obesity Osteoarthritis Recurrent inguinal hernia Sciatica Social phobia Therapeutic drug monitoring assay Tobacco user Historical Phobia Procedure/Surgical History ???Repair of inguinal hernia (02/02/2017)???Colonoscopy (03/20/2015)???Arthroscopic knee operation (08/04/2011) Medications gabapentin 100 mg oral capsule, 100 mg= 1 cap, Oral, Daily, 3 refills lisinopril 10 mg oral tablet, 10 mg= 1 tab, Oral, Daily, 5 refills methylphenidate 10 mg/24 hr oral capsule, (50/50 release) extended release, 10 mg= 1 cap, Oral, every morning Methylphenidate Hydrochloride LA 10 mg/24 hr oral capsule, extended release Allergies nicotine??(Rash) traMADol??(Angry outburst, Fatigue, Nausea, Headache) [...] (Td) adult/adol 11/18/1995 Recorded Electronically Signed on 10/15/22 10:24 AM Eli Navarrete BENZENE WASHER Electronically Signed on 10/15/22 10:20 AM Prema Daniel Patient Care team information Care Team Personnel Name: Luiz Lyn MD Position: Physician Member Role: Primary Care Physician Address: Address: [address] [place] [id number] [place] Care Team Related Persons Name: ANA ZAMORA
--- OUTSIDE RECORDS SUMMARY | 2024-02-18 18:02 | XMS_ITS | Encounter Summary ---
Author Organization [facility] Address [address] [place] [address] Care Team Providers Care Pre Sales Technical Consultant Name Role Phone Sanjuanita Medina Primary Care Provider [phone] Reason for Visit * Reason Onset Date Comments Medication Problem 06/21/2012 Encounter Details Date Type Department Care Team (Late st Contact Info) Description 06/21/2012 Telephone [facility] Neurosurgery - [facility] [address] [place] [address] Paige Bell PA [address] [place] [id number] Medication Problem Social History Tobacco Use Types Packs/Day Years Used Date Smoking Tobacco: Every Day Cigarettes Alcohol Use Standard Drinks/Week Comments Not Asked 0 (1 standard drink = 0.6 oz pur e alcohol) Sex and Gender Information Value Date Recorded Sex Assigned at Not on file Gender Identity Not on file Sexual Orientation Not on file documented as of this encounter Ordered Prescriptions Prescription Sig Dispensed Refills Start Date End Da te lorazepam (ATIVAN) 0.5 mg tablet Take 2 tabs PO 1 hour prior to study, repeat x 1 tab prn 3 Tab 0 06/21/2012 documented in this encounter Miscellaneous Notes * Telephone Encounter - Paige Bell - 06/21/2012 0853 EST I contacted the pharmacy to see what medication he used previously. This medication worked eventually but not within the first 45-60 minutes. I have called in another similar script but instructed patient to take 1 mg 1 hour prior and 0.5 mgprn. Lorazepam 0.5 mg #3. * Telephone Encounter - oLtus Negrete - 06/21/2012 0845 EST Patient is having MRI at [facility] tomorrow and will need medication to help him through it. This can be sent to the pharmacy listed. documented in this encounter Plan of Treatment Not on file documented as of this encounter Visit Diagnoses Not on filedocumented in this encounter Care Teams Pre Sales Technical Consultant Relationship Specialty Start Date End Date Sanjuanita Medina PA [address] [place] [id number] PCP - General 05/05/12 documented as of this encounter
--- OUTSIDE RECORDS SUMMARY | 2024-02-18 18:02 | XMS_ITS | Encounter Summary ---
Author Organization [facility] Address [address] [place] [address] Care Team Providers Care Mental Health Counselor Name Role Phone Sanjuanita Medina Primary Care Provider Reason for Visit * Reason Onset Date Comments Appointment Related 07/18/2015 Encounter Details Date Type Department Care Team (Late st Contact Info) Description 07/18/[address] [facility] Spine Program - [address] [place] [address] Migeul Petersen PA-C [facility] [employer] [facility] [place] [address] Appointment Related Social History Tobacco Use Types Packs/Day Years Used Date Smoking Tobacco: Every Day Cigarettes Alcohol Use Standard Drinks/Week Comments Not Asked 0 (1 standard drink = 0.6 oz pur e alcohol) Sex and Gender Information Value Date Recorded Sex Assigned at Not on file Gender Identity Not on file Sexual Orientation Not on file documented as of this encounter Miscellaneous Notes * Telephone Encounter - Jonathan Su - 07/18/2015 1436 EST ~ Attempted to reach Chidi in regards to consistent cancels/reschedules. No VM, no contact. ~ Reached out to PCP, Sanjuanita Medina's clinic. Spoke w/ Manuel there and advised her of Chidi's pattern and the need for him to be seen at their office again before reschedule. Manuel relates that Chidi is scheduled to see them on 07/24/15 at 0900. Gave her our fax number to fax note and requested callback from that office confirming that Chidi will be present at 07/24/15 appt at [facility]/spine. documented in this encounter Plan of Treatment Not on file documented as of this encounter Visit Diagnoses Not on filedocumented in this encounter Care Teams Mental Health Counselor Relationship Specialty Start Date End Date Sanjuanita Medina PA [address] [place] [id number] PCP - General 05/05/12 documented as of this encounter
--- OUTSIDE RECORDS SUMMARY | 2024-02-18 18:02 | XMS_ITS | Continuity of Care Document ---
Author Organization [facility] Address [address] [place] [address] Care Team Providers Care Accounts Payable Payroll Coordinator Name Role Phone Luiz Lyn Primary Care Physician Encounter NCTY_CO Date(s): 09/19/22 - 09/19/[address] [address] Encounter Diagnosis Pain in left hip(Discharge Diagnosis) - 09/19/22 Discharge Disposition: Home or Self Care Attending Physician: Luiz Lyn MD Admitting Physician: Luiz Lyn MD Referring Physician: Luiz Lyn MD Allergies, [...] bedtime, # 30 cap, 3 Refill(s), Pharmacy: [facility] Start Date: 09/16/22 Status: Ordered lisinopril 10 mg oral tablet 10 mg = 1 tab, Oral, Daily, # 30 tab, 5 Refill(s), Pharmacy: [facility] Start Date: 09/16/22 Status: Ordered methylphenidate 10 mg/24 hr oral capsule, (50/50 release) extended release 10 mg = 1 cap, Oral, every morning, # 30 cap, 0 Refill(s), Pharmacy: [id number] Start Date: 09/16/22 Status: Ordered Problem List Condition Confirmation Course Effective Dates Status H ealth Status Informant Arthropathy Confirmed Active Asthma Confirmed Active Attention deficit hyperactivity disorder, combined type Confirmed Active Chronic constipation Confirmed Active Depressive disorder Confirmed Active Long-term current use of drug therapy Confirmed Active Generalized anxiety disorder Confirmed Active Hypertensive disorder Confirmed Active Hypertension Confirmed Active Inguinal hernia without obstruction or [...] tibial plateau Results Laboratory List Name Date Basic Metabolic Panel 09/19/22 CBC w/ Diff 09/19/22 Lipid Panel 09/19/22 TSH w/ Rflx to Free T4 09/19/22 Automated Diff 09/19/22 Most recent to oldest [Reference Range]: 1 WBC [5.0-10.0 x10^3/mcL] 8.0 x10^3/mcL (09/19/22 10:03 AM) RBC [4.6-6.0 x10^6/mcL] 5.5 x10^6/mcL (09/19/22 10:03 AM) Neutro Auto [40.0-75.0 %] 58.6 % (09/19/22 10:03 AM) Lymph Auto [20.0-50.0 %] 28.4 % (09/19/22 10:03 AM) Kendall Auto [2.0-15.0 %] 11.0 % (09/19/22 10:03 AM) Basophil Auto [0.0-1.0 %] 0.5 % (09/19/22 10:03 AM) BUN [7-18 mg/dL] 14 mg/dL (09/19/22 10:03 AM) Cholesterol Total [50-200 mg/dL] 175 mg/ dL (09/19/22 10:03 AM) LDL [0-130 mg/dL] 109 mg/dL (09/19/22 10:03 AM) Glucose Level [74-106 mg/dL] 111 mg/dL *HI* (09/19/22 10: AM) Potassium Level [3.5-5.1 mmol/L] 4.2 mmo l/L (09/19/22 10:03 AM) MCV [80.0-96.0] 89.1 (09/19/22 10:03 AM) HDL [40-60 mg/dL] 39 mg/dL *LOW* (09/19/22 AM) MCHC [31.0-35.0 g/dL] 32.5 g/dL (09/19/22 10:03 AM) Sodium Level [136-145 mmol/L] 142 mmol/L (09/19/22 10: AM) Hct [41.0-51.0 %] 48.9 % (09/19/22 10:03 AM) Triglycerides [0-150 mg/dL] 137 mg/dL (09/19/22 10:03 AM) Calcium Level [8.5-10.1 mg/dL] 9.0 mg/dL (09/19/22 10:03 AM) MCH [26.0-32.0 pg] 29.0 pg (09/19/22 10:03 AM) Neutro Absolute 4.7 x10^3/mcL *NA* (09/19/22 10:03 AM) Hgb [14.0-18.0 g/dL] 15.9 g/dL (09/19/22 10:03 AM) Platelets [130-450 x10^3/mcL] 256 x10^3/ mcL (09/19/22 10:03 AM) CO2 [21-32 mmol/L] 31 mmol/L (09/19/22 10:03 AM) TSH [0.358-3.740 mcIntlUnit/mL] 1.218 mc IntlUnit/mL (09/19/22 10:03 AM) eGFR Non-AA [>=60] 77 (09/19/22 10:03 AM) eGFR AA [>=60] 77 (09/19/22 10:03 AM) Chloride Level [98-107 mmol/L] 104 mmol/ L (09/19/22 10:03 AM) RDW-CV [11.5-17.0 %] 13.3 % (09/19/22 10:03 AM) Imm Gran Auto [0.0-0.9 %] 0.1 % (09/19/22 10:03 AM) Creatinine Level [0.70-1.30 mg/dL] 1.15 mg/dL (09/19/22 10:03 AM) Eos, Auto [1.0-6.0 %] 1.4 % (09/19/22 10:03 AM) Social History Social History Type Response Tobacco Former tobacco user Tobacco Use:. Quit smoking Mar 2022 per day. Sex Male Patient Care team information Care Team Personnel Name: Luiz Lyn MD Position: Physician Member Role: Primary Care Physician Address: Address: [address] [place] [phone] [place] Care Team Related Persons Name: NIKKO ZAMORA
--- OUTSIDE RECORDS SUMMARY | 2024-02-18 18:02 | XMS_ITS | Continuity of Care Document ---
Author Organization [facility] Address [address] [place] [address] Care Team Providers Care Director Of Development Name Role Phone Yissel Painter Primary Care Physician Encounter NCTY_AL Date(s): 01/31/24 - 01/31/[address] [id number] Encounter Diagnosis Cellulitis, leg(Discharge Diagnosis) - 01/31/24 Discharge Disposition: Home or Self Care Attending Physician: Danilo Finn MD Admitting Physician: Danilo Finn MD Allergies, Adverse Reactions, Alerts Substance Reaction Severity Status nicotine 1 Rash Unknown Active Wellbutrin Anger Hallucinations Moderate Active traMADol Angry outburst Fatigue Nausea Headache Unknown Active Chantix Anger Moderate Active 1Has to be the clear patch Assessment and Plan Future Appointments Immunizations Given and Recorded Vaccine Date Status Refusal Reason tetanus/diphth/pertuss (Tdap) adult/adol 01/29/24 Given tetanus/diphth/pertuss (Tdap) adult/adol 10/24/10 Recorded tetanus-diphth toxoids (Td) adult/adol 03/20/06 Re corded tetanus-diphth toxoids (Td) adult/adol 11/18/95 Re corded Medications amLODIPine 10 mg oral tablet 10 mg = 1 tab, Oral, Daily, 0 Refill(s) Start Date: 10/14/23 Status: Ordered betamethasone dipropionate 0.05% topical cream 1 florence, Topical, BID, # 50 g, 1 Refill(s), Pharmacy: [facility] Start Date: 02/06/23 Status: Ordered cephalexin 500 mg oral tablet 500 mg = 1 tab, Oral, QID, X 10 days, # 40 tab, 0 Refill(s), 02/10/24 5:18:00 PM CDT, Pharmacy: [facility], 188, cm, 10/21/23 8:48:00 EDT, Height, 137.5, kg, 10/21/23 9:13:00 EDT, WeightDosing Start Date: 01/31/24 Stop Date: 02/10/24 Status: Ordered doxycycline hyclate 100 mg oral capsule 100 mg = 1 cap, Oral, BID, X 10 days, # 20 cap, 0 Refill(s), 02/10/24 5:18:00 PM CDT, Pharmacy: [facility], 188, cm, 10/21/23 8:48:00 EDT, Height, 137.5, kg, 10/21/23 9:13:00 EDT, WeightDosing Start Date: 01/31/24 Stop Date: 02/10/24 Status: Ordered DULoxetine 20 mg oral delayed release capsule 20 mg = 1 cap, Oral, BID, 0 Refill(s) Start Date: 09/22/23 Status: Ordered gabapentin 300 mg oral capsule 300 mg = 1 cap, Oral, TID, # 90 cap, 5 Refill(s), Pharmacy: [facility] Start Date: 02/17/23 Status: Ordered lisinopril 20 mg oral tablet 20 mg = 1 tab, Oral, Daily, # 90 tab, 3 Refill(s), Pharmacy: [facility] Start Date: 10/23/22 Status: Ordered magnesium gluconate 500 mg oral tablet 500 mg = 1 tab, Oral, Daily, 0 Refill(s) Start Date: 10/14/23 Status: Ordered metFORMIN 500 mg oral tablet, extended release 0 Refill(s) Start Date: 09/22/23 Status: Ordered methylphenidate 20 mg/8 hr oral tablet, extended release 20 mg = 1 tab, Oral, BID, # 60 tab, 0 Refill(s), Pharmacy: [facility] Start Date: 04/22/23 Status: Ordered traZODone 50 mg oral tablet 50 mg = 1 tab, Oral, every night at bedtime, 0 Refill(s) Start Date: 10/14/23 Status: Ordered Problem List Condition Confirmation Course [...] obstruction or gangrene 1, 2 Confirmed Active Left lower quadrant pain Confirmed [...] Procedure Date Related Diagnosis Body Site Status Colonoscopy 1 10/20/23 Completed Repair of inguinal hernia 2 02/01/17 Completed Colonoscopy 03/19/15 Completed bilateral Arthroscopic knee operation 3 08/03/11 Completed 110 yr fu recommended 2bilateral, recurrent 3right knee arthroscopy, partial medial meniscectomy and chondroplasty medial tibial plateau Vital Signs Most recent to oldest [Reference Range]: 1 Temperature Temporal Artery [36-38 Deg C ] 36.2 Deg C (01/31/24 6:01 PM) Heart Rate Monitored [60-100 bpm] 99 bpm (01/31/24 6:01 PM) Respiratory Rate [12-24 br/min] 16 br/mi n (01/31/24 6:01 PM) Blood Pressure [90-140/60-90 mmHg] 159/8 6mmHg *HI* (01/31/24 6:01 PM) Mean Arterial Pressure, Cuff [65-140 mmH g] 110 mmHg (01/31/24 6:01 PM) Weight Estimated 136.08 kg (01/31/24 6:01 PM) Body Mass Index Estimated 38.5 kg/m2 (01/31/24 6:01 PM) Height/Length Estimated 188 cm (01/31/24 6:01 PM) Social History Social History Type Response Tobacco Former tobacco user Tobacco Use:. Quit smoking Mar 2022 per day. Sex Male Hospital Discharge Instructions Patient Education 01/31/2024 17:16:51 Cellulitis, Adult Cellulitis, Adult Cellulitis is a skin infection. The infected area is usually warm, red, swollen, and tender. This condition occurs most often in the arms and lower legs. The infection can travel to the muscles, blood, and underlying tissue and become serious. It is very important to get treated for this condition. What are the causes? Cellulitis is caused by bacteria. The bacteria enter through a break in the skin, such as a cut, burn, insect bite, open sore, or crack. What increases the risk? This condition is more likely to occur in people who: ??? Have a weak body defense system (immune system). ??? Have open wounds on the skin, such as cuts, cortes, bites, and scrapes. Bacteria can enter the body through these open wounds. ??? Are older than 60 years of age. ??? Have diabetes. ??? Have a type of long-lasting (chronic) liver disease (cirrhosis) or kidney disease. ??? Are obese. ??? Have a skin condition such as: ??? Itchy rash (eczema). ??? Slow movement of blood in the veins (venous stasis). ??? Fluid buildup below the skin (edema). ??? Have had radiation therapy. ??? Use IV drugs. What are the signs or symptoms? Symptoms of this condition include: ??? Redness, streaking, or spotting on the skin. ??? Swollen area of the skin. ??? Tenderness or pain when an area of the skin is touched. ??? Warm skin. ??? A fever. ??? Chills. ??? Blisters. How is this diagnosed? This condition is diagnosed based on a medical history and physical exam. You may also have tests, including: ??? Blood tests. ??? Imaging tests. How is this treated? Treatment for this condition may include: ??? Medicines, such as antibiotic medicines or medicines to treat allergies (antihistamines). ??? Supportive care, such as rest and application of cold or warm cloths (compresses) to the skin. ??? Hospital care, if the condition is severe. The infection usually starts to get better within 1???2 days of treatment. Follow these instructions at home: Medicines ??? Take driz-mpi-sfuvodb and prescription medicines only as told by your health care provider. ??? If you were prescribed an antibiotic medicine, take it as told by your health care provider. Donot stop taking the antibiotic even if you start to feel better. General instructions ??? Drink enough fluid to keep your urine pale yellow. ??? Do not touch or rub the infected area. ??? Raise (elevate) the infected area above the level of your heart while you are sitting or lying down. ??? Apply warm or cold compresses to the affected area as told by your health care provider. ??? Keep all follow-up visits as told by your health care provider. This is important. These visitslet your health care provider make sure a more serious infection is not developing. Contact a health care provider if: ??? You have a fever. ??? Your symptoms do not begin to improve within 1???2 days of starting treatment. ??? Your bone or joint underneath the infected area becomes painful after the skin has healed. ??? Your infection returns in the same area or another area. ??? You notice a swollen bump in the infected area. ??? You develop new symptoms. ??? You have a general ill feeling (malaise) with muscle aches and pains. Get help right away if: ??? Your symptoms get worse. ??? You feel very sleepy. ??? You develop vomiting or diarrhea that persists. ??? You notice red streaks coming from the infected area. ??? Your red area gets larger or turns dark in color. These symptoms may represent a serious problem that is an emergency. Do not wait to see if the symptoms will go away. Get medical help right away. Call your local emergency services (911 in the [place] Do not drive yourself to the hospital. Summary ??? Cellulitis is a skin infection. This condition occurs most often in the arms and lower legs. ??? Treatment for this condition may include medicines, such as antibiotic medicines or antihistamines. ??? Take hdgm-dgg-yzljonw and prescription medicines only as told by your health care provider. If you were prescribed an antibiotic medicine, do not stop taking the antibiotic even if you start to feel better. ??? Contact a health care provider if your symptoms do not begin to improve within 1???2 days of starting treatment or your symptoms get worse. ??? Keep all follow-up visits as told by your health care provider. This is important. These visitslet your health care provider make sure that a more serious infection is not developing. This information is not intended to replace advice given to you by your health care provider. Make sure you discuss any questions you have with your health care provider. Document Revised: 04/16/2022 Document Reviewed: 04/17/2022 [employer] Patient Education ?? 2022 [employer]. Follow Up Care 01/31/2024 17:56:04 With:Luiz Lyn MD Address: [address] [place] [phone] When:2 to 4 days Emergency department Discharge instructions * Danilo Finn MD: PERFORM Event Display: ED Discharge Information Authored Date: [id number] JEAN MARIE ZAMORA :1970 Age:53 years Sex:Male Visit Date:01/31/2024 Primary Care Physician: Luiz Lyn MD Discharge Instructions We would like to thank you for allowing us to assist you with your healthcare needs. The following includes patient education materials and information regarding your injury/illness. Diagnosis from Today's Visit Cellulitis, leg Discharge Vitals Temperature??(Temporal Artery) 97.2 ??F (36.2 ??C) Heart Rate??(Monitored) 99 Respiratory Rate?? 16 Blood Pressure?? 159/86?? SpO2?? 95% Height?? 74.02 in (188 cm) Weight??(Estimated) 300.06 lb (136.08 kg) BMI?? 38.5 Allergies Chantix??(Anger) Wellbutrin??(Anger, Hallucinations) nicotine??(Rash) traMADol??(Angry outburst, Fatigue, Nausea, Headache) What to Do Next Instructions from Your Care Team Thank you for coming to the emergency department today,??it has been our pleasure to take care of you. ?? We did not see any fluid collection or abscess on the ultrasound that needs to be drained at this time. ?? Stop taking the amoxicillin???clavulanate and start taking the cephalexin and doxycycline. ??We would expect you to start to see some improvement in about a day and a half or so (some improvement in redness, swelling, pain, etc.). ?? Please follow up with your regular doctor??within the next week??and return to the emergency department if you have any new or concerning symptoms such as worsening symptoms apply the antibiotic in particular you have any significant spread of redness, increased pain, fever, trouble taking antibiotic, or if you have any other concerns. You Need to Schedule the Following Appointments Follow Up with??Luiz Lyn MD When:??Within 2 to 4 days Where: [address] [place] [address] [place] [address] Upcoming Scheduled Appointments Thursday 1:30 PM EDT ?? With: Eli Navarrete NP Where: [facility] [address] [place] [place] [address] Status: Confirmed You were treated today on an emergency basis; it may be monroy to contact your primary care provider to notify them of your visit today. You may have been referred to your regular doctor or a specialist, please follow up as instructed. If your condition worsens or you can't get in to see the doctor, contact the Emergency Department. Medications What How Much When Why Instructions Next Dose New cephalexin (cephalexin 500 mg oral tablet) 1 tab Oral (given by mouth) 4 times a day Cellulitis, leg Duration: 10 Days Pickup at [facility] New doxycycline (doxycycline hyclate 100 mg oral capsule) 1 Capsules Oral (given by mouth) 2 times a day Cellulitis, leg Duration: 10 Days Pickup at [facility] Unchanged amLODIPine (amLODIPine 10 mg oral tablet) 1 tab Oral (given by mouth) Every day Unchanged betamethasone topical (betamethasone dipropionate 0.05% topical cream) 1 Application Topical (on the skin) 2 times a day Cubital tunnel syndrome on left Unchanged DULoxetine (DULoxetine 20 mg oral delayed release capsule) 1 Capsules Oral (given by mouth) 2 times a day Unchanged gabapentin (gabapentin 300 mg oral capsule) 1 Capsules Oral (given by mouth) 3 times a day Unchanged lisinopril (lisinopril 20 mg oral tablet) 1 tab Oral (given by mouth) Every day Unchanged magnesium gluconate (magnesium gluconate 500 mg oral tablet) 1 tab Oral (given by mouth) Every day Unchanged metFORMIN (metFORMIN 500 mg oral tablet, extended release) Unchanged methylphenidate (methylphenidate 20 mg/ 8 hr oral tablet, extended release) 1 tab Oral (given by mouth) 2 times a day Attention deficit hyperactivity disorder, combined type Unchanged traZODone (traZODone 50 mg oral tablet) 1 tab Oral (given by mouth) Every night at bedtime Pharmacy Information [facility]: [address] [facility] [address] [place], [place] [id number] [phone] ?? What How Much When Comments Stop Taking amoxicillin-clavulanate (amoxicillin- clavulanate 875 mg-125 mg oral tablet) 1 tab Oral (given by mouth) Every 12 hours Duration: 7 Days Education Materials Cellulitis, Adult Cellulitis is a skin infection. The infected area is usually warm, red, swollen, and tender. This condition occurs most often in the arms and lower legs. The infection can travel to the muscles, blood, and underlying tissue and become serious. It is very important to get treated for this condition. What are the causes? Cellulitis is caused by bacteria. The bacteria enter through a break in the skin, such as a cut, burn, insect bite, open sore, or crack. What increases the risk? This condition is more likely to occur in people who: ? Have a weak body defense system (immune system). ? Have open wounds on the skin, such as cuts, cortes, bites, and scrapes. Bacteria can enter the body through these open wounds. ? Are older than 60 years of age. ? Have diabetes. ? Have a type of long-lasting (chronic) liver disease (cirrhosis) or kidney disease. ? Are obese. ? Have a skin condition such as: ? Itchy rash (eczema). ? Slow movement of blood in the veins (venous stasis). ? Fluid buildup below the skin (edema). ? Have had radiation therapy. ? Use IV drugs. What are the signs or symptoms? Symptoms of this condition include: ? Redness, streaking, or spotting on the skin. ? Swollen area of the skin. ? Tenderness or pain when an area of the skin is touched. ? Warm skin. ? A fever. ? Chills. ? Blisters. How is this diagnosed? This condition is diagnosed based on a medical history and physical exam. You may also have tests, including: ? Blood tests. ? Imaging tests. How is this treated? Treatment for this condition may include: ? Medicines, such as antibiotic medicines or medicines to treat allergies (antihistamines). ? Supportive care, such as rest and application of cold or warm cloths (compresses) to the skin. ? Hospital care, if the condition is severe. The infection usually starts to get better within 1???2 days of treatment. Follow these instructions at home: Medicines ? Take pyro-fgi-srmujvi and prescription medicines only as told by your health care provider. ? If you were prescribed an antibiotic medicine, take it as told by your health care provider. Do notstop taking the antibiotic even if you start to feel better. General instructions ? Drink enough fluid to keep your urine pale yellow. ? Do not touch or rub the infected area. ? Raise (elevate) the infected area above the level of your heart while you are sitting or lying down. ? Apply warm or cold compresses to the affected area as told by your health care provider. ? Keep all follow-up visits as told by your health care provider. This is important. These visits letyour health care provider make sure a more serious infection is not developing. Contact a health care provider if: ? You have a fever. ? Your symptoms do not begin to improve within 1???2 days of starting treatment. ? Your bone or joint underneath the infected area becomes painful after the skin has healed. ? Your infection returns in the same area or another area. ? You notice a swollen bump in the infected area. ? You develop new symptoms. ? You have a general ill feeling (malaise) with muscle aches and pains. Get help right away if: ? Your symptoms get worse. ? You feel very sleepy. ? You develop vomiting or diarrhea that persists. ? You notice red streaks coming from the infected area. ? Your red area gets larger or turns dark in color. These symptoms may represent a serious problem that is an emergency. Do not wait to see if the symptoms will go away. Get medical help right away. Call your local emergency services (911 in the [place] Do not drive yourself to the hospital. Summary ? Cellulitis is a skin infection. This condition occurs most often in the arms and lower legs. ? Treatment for this condition may include medicines, such as antibiotic medicines or antihistamines. ? Take djrd-fjj-cfemhix and prescription medicines only as told by your health care provider. If you were prescribed an antibiotic medicine, do not stop taking the antibiotic even if you start to feel better. ? Contact a health care provider if your symptoms do not begin to improve within 1???2 days of starting treatment or your symptoms get worse. ? Keep all follow-up visits as told by your health care provider. This is important. These visits letyour health care provider make sure that a more serious infection is not developing. This information is not intended to replace advice given to you by your health care provider. Make sure you discuss any questions you have with your health care provider. Document Revised: 04/16/2022 Document Reviewed: 04/17/2022 [employer] Patient Education ?? 2022 [employer] Patient/Meter Record Clerk Signature Patient Name:ZAMORA JEAN MARIE Guerda I have received this information and my questions have been answered. Patient/Meter Record Clerk Name: Patient/Meter Record Clerk Signature: Relationship to Patient: Witness Name/Signature: Date: Electronically Signed on: 01/31/2024 18:19 EDTSigned by:AAYUSH Discharge summary * Luis E Simms J: PERFORM Event Display: Discharge Summary Authored Date: [id number] Patient Care team information Care Team Personnel Name: Yissel Painter APRN Position: No Access Member Role: Informed Provider Address: Address: [place] [address] Care Team Related Persons Name: ZAMORANIKKO GARCIA Address: Home [address], [id number]
--- OUTSIDE RECORDS SUMMARY | 2024-02-18 18:02 | XMS_ITS | Encounter Summary ---
Author Organization [facility] Address [address] [place] [address] Care Team Providers Care Industrial Gas Fitter Helper Name Role Phone Sanjuanita Medina Primary Care Provider [phone] Encounter Details Date Type Department Care Team (Latest Contact Info) Description 01/03/2014 12:00 EDT - 01/03/2014 23:59 EDT Hospital Encounter [address] [address] Unknown, Provider, Discharge Disposition: Home or Self Care Social History Tobacco Use Types Packs/Day Years Used Date Smoking Tobacco: Every Day Cigarettes Alcohol Use Standard Drinks/Week Comments Not Asked 0 (1 standard drink = 0.6 oz pur e alcohol) Sex and Gender Information Value Date Recorded Sex Assigned at Not on file Gender Identity Not on file Sexual Orientation Not on file documented as of this encounter Medications at Time of Discharge Medication Sig Dispensed Refills Start Date End Date amlodipine (NORVASC) 10 mg tablet Take 10 mg by mouth daily. gabapentin (NEURONTIN) 100 mg capsule Take 200 mg by mouth 3 times daily. hydrocodone-acetaminophen (LORTAB) 5-500 mg tablet Take 1 Tab by mouth every 12 hours as needed. lorazepam (ATIVAN) 0.5 mg tablet Take 2 tabs PO 1 hour prior to study, repeat x 1 tab prn 3 Tab 0 06/21/2012 documented as of this encounter Discharge Disposition Disposition Code Departure Means Destination Home or Self Nursing Home documented in this encounter Plan of Treatment Not on file documented as of this encounter Visit Diagnoses Not on filedocumented in this encounter Care Teams Industrial Gas Fitter Helper Relationship Specialty Start Date End Date Sanjuanita Medina PA [address] [place] [id number] PCP - General 05/05/12 documented as of this encounter
--- OUTSIDE RECORDS SUMMARY | 2024-02-18 18:02 | XMS_ITS | Encounter Summary ---
Author Organization [facility] Address [address] [place] [address] Care Team Providers Care Dry Boss Name Role Phone Jarvis Medina Primary Care Provider [phone] Encounter Details Date Type Department Care Team (Late st Contact Info) Description 01/03/2014 Results Only [facility] - [facility] [address] [place], [place] [id number] Jarvis Medina PA [address] [place] [id number] Social History Tobacco Use Types Packs/Day Years Used Date Smoking Tobacco: Every Day Cigarettes Alcohol Use Standard Drinks/Week Comments Not Asked 0 (1 standard drink = 0.6 oz pur e alcohol) Sex and Gender Information Value Date Recorded Sex Assigned at Not on file Gender Identity Not on file Sexual Orientation Not on file documented as of this encounter Plan of Treatment Not on file documented as of this encounter Procedures Procedure Name Priority Date/Time Associated Diagnosis Comments CYTOPATHOLOGY Routine 01/03/2014 0:00 EDT documented in this encounter Results * CYTOPATHOLOGY (01/03/2014 0:00 EDT) Pathology Report: CYTOPATHOLOGY REPORT Reports generated via electronic interface contain original data; however they are lacking the format of the original report. Caution should be taken when reading/interpreti ng unformatted reports. Name: ? CHIDI ZAMORA ? Accession #: ? [id number] : ? 1970 (Age: 43) ??M ?Collect Date: ? 01/03/2014 Location: ? [facility] ? Receive Date: ? 01/04/2014 Provider: ? JARVIS GARCIA Copy to: ? CYTOLOGIC DIAGNOSIS: URINE, COLLECTION METHOD NOT SPECIFIED, CYTOLOGIC EVALUATION: - ??Negative for malignant cells. - ??Rare degenerated urothelial cells. Document reviewed and electronically signed by: ? JOSSUE FAM MD Report Date: ??01/04/2014 14:58 By the signature above, the attending physician certifies that he/she has personally conducted a gross and/or microscopic examination of the described specimens and rendered or confirmed the above diagnosis. Specimen Type: ? Urine, NOS Clinical History: ? Microscopic hematuria. ??clinical diagnosis code: ??599.72, R31.2 ? Gross Description: ? 25ccs of cloudy orange fluid were received and processed by selective cellular enhancement technique. ? End of Report [facility] 01/03/2014 01/04/2014 8:3 3 EDT Jarvis GARCIA PATHOLOGY ORDERABLES [facility] [address] [place] [address] documented in this encounter Visit Diagnoses Not on filedocumented in this encounter Care Teams Dry Boss Relationship Specialty Start Date End Date Jarvis Medina PA [address] [place] [id number] PCP - General 05/05/12 documented as of this encounter
--- OUTSIDE RECORDS SUMMARY | 2024-02-18 18:02 | XMS_ITS | Continuity of Care Document ---
Author Organization [facility] Address [address] [place] [address] Care Team Providers Care Home Companion Name Role Phone Yissel Painter Primary Care Physician Encounter [facility] Date(s): 04/20/23 - 04/20/[address] [address] Discharge Disposition: Home or Self Care Attending [...] # 50 g, 1 Refill(s), Pharmacy: [facility] Start Date: 02/06/23 Status: Ordered gabapentin 300 mg oral capsule 300 mg = 1 cap, Oral, TID, # 90 cap, 5 Refill(s), Pharmacy: [facility] Start Date: 02/17/23 Status: Ordered lisinopril 20 mg oral tablet 20 mg = 1 tab, Oral, Daily, # 90 tab, 3 Refill(s), Pharmacy: [facility] Start Date: 10/23/22 Status: Ordered methylphenidate 20 mg/8 hr oral tablet, extended release 20 mg = 1 tab, Oral, BID, # 60 tab, 0 Refill(s), Pharmacy: [facility] Start Date: 03/18/23 Status: Ordered Problem [...] smoking Mar 2022 per day. Sex Male Ambulatory cardiac rhythm monitor (Holter) study * Heidi Taylor: PERFORM Event Display: Holter Monitor Authored Date: [id number] JEAN MARIE ZAMORA 1970 [id number] Patient placed on Holter Monitor 48 Hourson 04/20/23. Electronically Signed on 04/20/23 09:24 AM Taylor, Heidi D Patient Care team information Care Team Personnel Name: Luiz Lyn MD Position: Physician Member Role: Informed Provider Address: Address: [address] [place] [phone] Name: Yissel Painter APRN Position: No Access Member Role: Primary Care Physician Address: Address: [employer] [address] [id number] Care Team Related Persons Name: NIKKO ZAMORA Address: Home [address] [place], [phone]
--- OUTSIDE RECORDS SUMMARY | 2024-02-18 18:02 | XMS_ITS | Encounter Summary ---
Author Organization [facility] Address [address] [place] [address] Care Team Providers Care Ice Platform Supervisor Name Role Phone Sanjuanita Medina Primary Care Provider [phone] Encounter Details Date Type Department Care Team (Late st Contact Info) Description 06/16/2012 Results Only Imaging [facility] Neurosurgery - [address] [address] Hugh Ramirez MD [address] [facility], [address] [place] [id number] Social History Tobacco Use Types Packs/Day Years Used Date Smoking Tobacco: Every Day Cigarettes Alcohol Use Standard Drinks/Week Comments Not Asked 0 (1 standard drink = 0.6 oz pur e alcohol) Sex and Gender Information Value Date Recorded Sex Assigned at Not on file Gender Identity Not on file Sexual Orientation Not on file documented as of this encounter Plan of Treatment Pending Results Name Type Priority Associated Diagnoses Date /Time OUTSIDE IMAGES - MR NEURO Imaging 06/16/2012 15:59 EST OUTSIDE IMAGES - MR NEURO Imaging 06/16/2012 15:59 EST documented as of this encounter Visit Diagnoses Not on filedocumented in this encounter Care Teams Ice Platform Supervisor Relationship Specialty Start Date End Date Sanjuanita Medina PA [address] [place] [id number] PCP - General 05/05/12 documented as of this encounter
--- OUTSIDE RECORDS SUMMARY | 2024-02-18 18:02 | XMS_ITS | Continuity of Care Document ---
Author Organization [facility] Address [address] [place] [address] Care Team Providers Care In Home Baby Sitter Name Role Phone Luiz Lyn Primary Care Physician Encounter [facility] Date(s): 10/29/22 - 10/29/[address] [address] Discharge Disposition: Home or Self Care Attending [...] corded Medications gabapentin 100 mg oral capsule 200 mg = 2 cap, Oral, BID, # 120 cap, 5 Refill(s), Pharmacy: [facility] Start Date: 10/23/22 Status: Ordered lisinopril 20 mg oral tablet 20 mg = 1 tab, Oral, Daily, # 90 tab, 3 Refill(s), Pharmacy: [facility] Start Date: 10/23/22 Status: Ordered methylphenidate 20 mg/8 hr oral tablet, extended release 20 mg = 1 tab, Oral, Daily, # 30 tab, 0 Refill(s), Pharmacy: [facility] Start Date: 10/23/22 Status: Ordered Problem List Condition Confirmation Course [...] tibial plateau Results Laboratory List Name Date Hemoglobin A1c 10/29/22 Most recent to oldest [Reference Range]: 1 Hemoglobin A1c [4.0-6.0 %] 6.9 % *HI* (10/29/22 10:16 AM) Social History Social History Type Response Tobacco Former tobacco user Tobacco Use:. Quit smoking Mar 2022 per day. Sex Male Patient Care team information Care Team Personnel Name: Luiz Lyn MD Position: Physician Member Role: Primary Care Physician Address: Address: [address] [place] [phone] [place] Care Team Related Persons Name: ZAMORA NIKKO Address: Home [address] [place] [address], [phone]
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
--- OUTSIDE RECORDS SUMMARY | 2024-02-18 18:02 | XMS_ITS | Continuity of Care Document ---
Author Organization [facility] Address [address] [place] [address] Care Team Providers Care Screw Machine Tender Name Role Phone Luiz Lyn Primary Care Physician [phone] [facility] 02/11/23 [facility] [address] [place] [address] Encounter Diagnosis Obstructive sleep apnea(Discharge Diagnosis) - 02/11/23 Nocturnal hypoxia(Discharge Diagnosis) - 02/11/23 Discharge Disposition: Home or Self Care Attending Physician: Eli Navarrete NP Referring Physician: Eli Navarrete FABRICATION SUPERVISOR Allergies, Adverse Reactions, Alerts Substance Reaction Severity Status nicotine 1 Rash Unknown Active traMADol Angry outburst Fatigue Nausea Headache Unknown Active 1Has to be the clear patch Assessment and Plan Future Appointments Functional Status 02/11/23 Other exposure to Infectious Disease Non e Immunizations Given and Recorded Vaccine Date Status Refusal Reason tetanus/diphth/pertuss (Tdap) adult/adol 10/24/10 Recorded tetanus-diphth toxoids (Td) adult/adol 03/20/06 Re corded tetanus-diphth toxoids (Td) adult/adol 11/18/95 Re corded Medications betamethasone dipropionate 0.05% topical cream 1 florence, Topical, BID, # 50 g, 1 Refill(s), Pharmacy: [facility] Start Date: 02/06/23 Status: Ordered gabapentin 300 mg oral capsule 300 mg = 1 cap, Oral, TID, # 90 cap, 0 Refill(s), Pharmacy: [facility] Start Date: 01/26/23 Status: Ordered lisinopril 20 mg oral tablet 20 mg = 1 tab, Oral, Daily, # 90 tab, 3 Refill(s), Pharmacy: [facility] Start Date: 10/23/22 Status: Ordered methylphenidate 20 mg/8 hr oral tablet, extended release 20 mg = 1 tab, Oral, BID, # 60 tab, 0 Refill(s), Pharmacy: [facility] Start Date: 01/26/23 Status: Ordered Problem List [...] Range]: 1 Peripheral Pulse Rate [60-100 bpm] 85 bp m (02/11/23 2:17 PM) Blood Pressure [90-140/60-90 mmHg] 147/8 7mmHg *HI* (02/11/23 2:17 PM) Weight 137.89 kg (02/11/23 2:17 PM) Weight Measured (lbs) 303.995 lb (02/11/23 2:17 PM) Height 188 cm (02/11/23 2:17 PM) Height/Length Measured (inches) 74.02 in ch (02/11/23 2:17 PM) BSA Measured 2.68 m2 (02/11/23 2:17 PM) Body Mass Index 39.01 kg/m2 (02/11/23 2:17 PM) Social History Social History Type Response Tobacco Former tobacco user Tobacco Use:. Quit smoking Mar 2022 per day. Sex Male Progress note * Rocco Perales M: PERFORM Event Display: Progress Note - Physician Authored Date: [id number] Physician Outpatient Note * Eli Navarrete FABRICATION SUPERVISOR: PERFORM Event Display: Office Clinic Note Physician Authored Date: [id number] JEAN MARIE ZAMORA :1970 Age:52 years Sex:Male Visit Date:02/11/2023 Primary Care Physician: Luiz Lyn MD Chief Complaint new cpap user follow up History of Present Illness 52 years??male??here for new cpap user compliance ?? TODAY: Patient states most nights are okay with the CPAP. With the hot weather, it can be hard to use it and tolerate it as he gets overheated easily. ?? He is sleeping much better with the CPAP, longer hours, and is waking up feeling very refreshed.He is very happy that he can sleep through the night again. Review of Systems A 10-point REVIEW OF SYSTEM was obtained and reviewed, includes CONSTITUTIONAL, EYES, NOSE, THROAT,RESPIRATORY, HEART, GASTROINTESTINAL, UROLOGIC, MUSCULOSKELETAL, PSYCHIATRY, SKIN systems. Pertinent symptoms are discussed in history, otherwise negative. Physical Exam Vitals & Measurements HR:??85??(Peripheral)?? BP:??147/87?? SpO2:??96%?? HT:??188??cm?? WT:??137.89??kg?? BMI:??39.01?? BSA:??2.68?? General:??well appearing, appearing stated age, no acute distress,??obese??build HEENT: atraumatic skull, anicteric RESPIRATORY: quiet respiration, able to speak in full sentences without dyspnea, no accessory muscle use SKIN: no facial skin rash, no facial skin lesions PSYCHIATRIC: well groomed, fluent speech, good insight, linear thought process, good eye contact,balanced??affect NEUROLOGIC: alert, oriented, symmetric facial expression Clinic Assessment/Plan 1.??Obstructive sleep apnea??G47.33 Ibeth Zamora is a very pleasant 52 year old male here for new CPAP user visit. Previous visit, pt was initiated on auto CPAP 6 to 16cm H20. Download data reviewed and discussed with the patient. He has done very well to acclimate to CPAP. He has excellent compliance and reduction in his AHI, tx AHI 2.9/hr. No complaints of air hunger. Adjusted pressures in office to 9 to 16cm H20. ?? Patient reports some air leak around the top of his mask around his nose, using a FFM mask. No significant air leak really noted on his data but will have mask fit looked at during his titration study (see below).??He is receiving PAP supplies regularly from his DME, relies on phone calls as he does not have email/internet. ?? 2.??Nocturnal hypoxia??G47.34 Pt's diagnostic PSG had significant nocturnal hypoxemia Mean SpO2: 86% and Giacomo SpO2: 70% on Room Air; 243.9 minutes spent with SpO2 less than or equal to 88% on Room Air. Discussed proceeding with a titration PSG to address this which he is agreeable to. ?? PSG Instructions:??Pay attention to mask fit and refit as needed.??Try to find optimal pressure for both lateral and supine position sleep, especially Supine REM sleep. Document medications used on night of PSG.??If hypoxemia persist after respiratory events are resolved on CPAP, switch to BIPAPstarting with pressure support of 4cm, increase pressure support up to 10cm if doing so helps with oxygen saturation. ?? I provided greater than??30??minutes in the care of this patient, more than half the time was spentin [id number] counseling. ?with comorbidities of asthma, ADHD (methylphenidate 10mg), KERI, HTN, insomnia, nicotine dependence, OA, obesity, depression, social anxiety, chronic low back pain (gabapentin 100mg qhs) ? Clinical Data Reviewed: [place] Sleepiness Scale: 0/24 ?? Machine Download Data:??Resmed AirSense 10 Auto CPAP?? PAP Settings: ??Auto CPAP?6 to 16??CmH2O Date Range: ?01/11/23 - 02/09/23 Days with Usage >=4 hours: ??93% Avg Usage per Day Used: ??5hr 46min Mean/Median Pressure: ?10.6 90th-tile/95th-tile Pressure: ?14.5 Median-90th%tile Leak?3.3/11.2 Avg Treatment ??AHI: ??2.9/hr ?? Sleep Clinical Timeline:? 10/15/2022: New patient sleep consult at the kind request of Dr. Luiz Lyn. Suspect Obstructive Sleep Apnea based on snoring, tossing and turning at night, nocturnal awakenings, nonrestorative sleep, daytime fatigue, crowded airway, drowsy driving, ESS 11/10 (this may be an underestimation), Berlin[place] 09/19. On gabapentin 100mg qHS for chronic [...] at night, and waking up feeling refreshed. ? Current Mask: FFM DME: [facility] ?? Today's Assessment and Plan: See above ?? Follow up: 2 months or sooner if needed. ?? Remote [...] (Td) adult/adol 11/18/1995 Recorded Electronically Signed on 02/11/23 03:26 PM Carmela TARIKDoris Eli L FABRICATION SUPERVISOR Electronically Signed on 02/11/23 03:18 PM Prema Daniel Patient Care team information Care Team Personnel Name: Luiz Lyn MD Position: Physician Member Role: Primary Care Physician Address: Address: [address] [place] [phone] [place] Care Team Related Persons Name: NIKKO ZAMORA Address: [address], [id number]
--- OUTSIDE RECORDS SUMMARY | 2024-02-18 18:02 | XMS_ITS | Clinical Summary ---
Author Organization [facility] Address [address] [place] [address] Care Team Providers Care Mobility Engineer Name Role Phone Sanjuanita Medina Primary Care Provider Medications Medication Sig Dispensed Refills Start Date End Date Status amlodipine (NORVASC) 10 mg tablet Take 10 mg by mouth daily. Active gabapentin (NEURONTIN) 100 mg capsule Take 200 mg by mouth 3 times daily. Active hydrocodone-acetaminop hen (LORTAB) 5-500 mg tablet Take 1 Tab by mouth every 12 hours as needed. Active lorazepam (ATIVAN) 0.5 mg tablet Take 2 tabs PO 1 hour prior to study, repeat x 1 tab prn 3 Tab 0 06/21/2012 Active Social History Tobacco Use Types Packs/Day Years Used Date Smoking Tobacco: Every Day Cigarettes Tobacco Cessation:Ready to Q uit: No Alcohol Use Standard Drinks/Week Comments Not Asked 0 (1 standard drink = 0.6 oz pur e alcohol) Interpersonal Safety Answer Date Record ed Physically Hurt Never 02/19/2020 Verbally Threaten Not on file 02/19/2020 Sex and Gender Information Value Date Recorded Sex Assigned at Not on file Gender Identity Not on file Sexual Orientation Not on file Obstetrics History Last Filed Vital Signs Vital Sign Reading [...] Body Mass Index 36.21 06/11/2012 1230 EST Plan of Treatment Health Maintenance Due Date Last Done Comments Hepatitis C Screen 1970 Hepatitis B Vaccine (1 of 3 - 19+ 3-dose series) 08/01 COVID-19 Vaccine ( - 2022-24 season) 2023 Care Teams Mobility Engineer Relationship Specialty Start Date End Date Sanjuanita Medina PA [address], [place] [id number] PCP - General 05/05/12
--- OUTSIDE RECORDS SUMMARY | 2024-02-18 18:02 | XMS_ITS | Referral Summary ---
Author Organization [facility] Address [address] [place] [address] Care Team Providers Care Credit Control Officer Name Role Phone Sanjuantia Medina Primary Care Provider [phone] Medications Medication Sig Dispensed Refills Start Date [...] on file Sexual Orientation Not on file Last Filed Vital Signs Vital Sign Reading [...] 36.21 06/11/2012 1230 EST Plan of Treatment Not on file Care Teams Credit Control Officer Relationship Specialty Start Date End Date Sanjuanita Medina PA [address] [place] [address] PCP - General 05/05/12
--- OUTSIDE RECORDS SUMMARY | 2024-02-18 18:02 | XMS_ITS | Continuity of Care Document ---
Author Organization [facility] Address [address] [place] [address] Care Team Providers Care Automotive Sales Representative Name Role Phone Luiz Lyn Primary Care Physician [phone] [facility] 12/10/22 - 12/10/22 [facility] [address] [place] [address] Encounter Diagnosis Obstructive sleep apnea(Discharge Diagnosis) - 12/10/22 Restless legs syndrome(Discharge Diagnosis) - 12/10/22 PLMD (periodic limb movement disorder)(Discharge Diagnosis) - 12/10/22 Bruxism(Discharge Diagnosis) - 12/10/22 Nocturnal hypoxemia(Discharge Diagnosis) - 12/10/22 Discharge Disposition: Home or Self Care Attending Physician: Eli Navarrete LEAD CUSTODIAN Allergies, Adverse Reactions, Alerts Substance Reaction Severity Status nicotine 1 Rash Unknown Active traMADol Angry outburst Fatigue Nausea Headache Unknown Active 1Has to be the clear patch Assessment and Plan Future Appointments Functional Status 12/10/22 Other exposure to Infectious Disease Non e Immunizations Given and Recorded Vaccine Date Status Refusal Reason tetanus/diphth/pertuss (Tdap) adult/adol 10/24/10 Recorded tetanus-diphth toxoids (Td) adult/adol 03/20/06 Re corded tetanus-diphth toxoids (Td) adult/adol 11/18/95 Re corded Medications gabapentin 100 mg oral capsule 200 mg = 2 cap, Oral, BID, # 120 cap, 5 Refill(s), Pharmacy: [facility] Start Date: 10/23/22 Status: Ordered lisinopril 20 mg oral tablet 20 mg = 1 tab, Oral, Daily, # 90 tab, 3 Refill(s), Pharmacy: [facility] Start Date: 10/23/22 Status: Ordered methylphenidate 20 mg/8 hr oral tablet, extended release 20 mg = 1 tab, Oral, Daily, # 28 tab, 0 Refill(s), Pharmacy: [facility] Start Date: 12/10/22 Status: Ordered Problem List Condition Confirmation Course [...] Confirmed Active Obesity Confirmed Active Obstructive sleep apnea Confirmed Active [...] Range]: 1 Peripheral Pulse Rate [60-100 bpm] 72 bp m (12/10/22 8:37 AM) Blood Pressure [90-140/60-90 mmHg] 118/9 3mmHg (12/10/22 8:37 AM) Weight 143.47 kg (12/10/22 8:37 AM) Weight Measured (lbs) 316.297 lb (12/10/22 8:37 AM) Height 188 cm (12/10/22 8:37 AM) Height/Length Measured (inches) 74.02 in ch (12/10/22 8:37 AM) BSA Measured 2.74 m2 (12/10/22 8:37 AM) Body Mass Index 40.59 kg/m2 (12/10/22 8:37 AM) Social History Social History Type Response Tobacco Former tobacco user Tobacco Use:. Quit smoking Mar 2022 per day. Sex Male Physician Outpatient Note * Eli Navarrete LEAD CUSTODIAN: PERFORM Event Display: Office Clinic Note Physician Authored Date: [id number] CHIDI ZAMORA :1970 Age:52 years Sex:Male Visit Date:12/10/2022 Primary Care Physician: Luiz Lyn MD Chief Complaint follow up psg results History of Present Illness 52 years??male??here for f/u psg results ?? TODAY: Patient states the night of his sleep study went okay. ?? Patient states he has been working on weight loss and is trying to exercise more. ?? His is relieved to find out the results of the PSG. Review of Systems A 10-point REVIEW OF SYSTEM was obtained and reviewed, includes CONSTITUTIONAL, EYES, NOSE, THROAT,RESPIRATORY, HEART, GASTROINTESTINAL, UROLOGIC, MUSCULOSKELETAL, PSYCHIATRY, SKIN systems. Pertinent symptoms are discussed in history, otherwise negative. Physical Exam Vitals & Measurements HR:??72??(Peripheral)?? BP:??118/93?? SpO2:??97%?? HT:??188??cm?? WT:??143.47??kg?? BMI:??40.59?? BSA:??2.74?? General:??well appearing, appearing stated age, no acute distress,??obese??build HEENT: atraumatic skull, anicteric RESPIRATORY: quiet respiration, able to speak in full sentences without dyspnea, no accessory muscle use SKIN: no facial skin rash, no facial skin lesions PSYCHIATRIC: well groomed, fluent speech, good insight, linear thought process, good eye contact,balanced??affect NEUROLOGIC: alert, oriented, symmetric facial expression Clinic Assessment/Plan 1.??Obstructive sleep apnea??G47.33 Chidi Zamora is a pleasant 52 year old male here for follow up diagnostic PSG results. PSG performed in the night of 11/27 showed Moderate Obstructive Sleep Apnea, Very Severe in REM sleep, associated with very significant nocturnal hypoxemia. Overall AHI: 25.1/hr; Overall RDI: 28.6/hr; REM AHI: 52.6/hr; Supine AHI: 46/hr; Left Lateral AHI: 18/hr. ?? We reviewed sleep study results in detail including apnea hypopnea index, positional data and oxygen data. We reviewed discussion of Obstructive Sleep Apnea, including pathophysiology, associated senior living cardiovascular, neurocognitive and overall health effects, and importance of treatment. Chuy atment options discussed. Extensively reviewed process of starting treatment and commonly encountered problems and ways to find support and troubleshooting problems. I discussed different mask options and the importance of finding the mask that will work for??him??within the first 30 days. I discussed how to adjust humidity for dryness/congestion and that the goal will be to use nightly for??his??total sleep time. I covered insurance compliance requirements and the [facility]'s mask exchange policy.??He??will have a titration study for fine tuning of therapy and to ensure adequate oxygenation on CPAP therapy. I will see??him??back between 31-90 days after starting CPAP and??he??is encouraged to call me sooner if??he??is having any difficulties tolerating CPAP. Will order titration study at that time. ?? Avoid drowsy driving and drowsy driving precautions as applicable. Weight loss encouraged. 2.??Nocturnal hypoxemia??G47.34 PSG showed significant nocturnal hypoxemia. Mean SpO2: 86% and Giacomo SpO2: 70% on Room Air; 243.9 minutes spent with SpO2 less than or equal to 88% on Room Air. Will have titration PSG after he has started CPAP to ensure adequate oxygenation. 3.??Restless legs syndrome??G25.81 Polysomnographic evidence consistent with Restless legs syndrome, characterized by frequent leg movements during the prolonged wake periods. Re-eval after patient has started CPAP therapy and after titration PSG. 4.??PLMD (periodic limb movement disorder)??G47.61 Study noted for Mild Periodic Limb Movement Disorder without significant arousals. PLM index 11.4/hr. PLM arousal index 0.5/hr.?? 5.??Bruxism??F45.8 Bruxism notes on diagnostic PSG. Could be related to his severe TAMARA. Monitor. I provided greater than??30??minutes in the care of this patient, more than half the time was spentin [id number] counseling. ?with comorbidities of asthma, ADHD (methylphenidate 10mg), KERI, HTN, insomnia, nicotine dependence, OA, obesity, depression, social anxiety, chronic low back pain (gabapentin 100mg qhs) ? Clinical Data Reviewed: [place] Sleepiness Scale: 12/10 ? Sleep Clinical Timeline:?? 10/15/2022: New patient sleep consult at the kind request of Dr. Luiz Lyn. Suspect Obstructive Sleep Apnea based on snoring, tossing and turning at night, nocturnal awakenings, nonrestorative sleep, daytime fatigue, crowded airway, drowsy driving, ESS 11/10 (this may be an underestimation), [facility]. On gabapentin 100mg qHS for chronic [...] CPAP 6 to 16cm H20 via TMS.? Today's Assessment and Plan: See above ?? [...] Non-organic sleep disorder Obesity Obstructive sleep apnea Osteoarthritis PLMD (periodic limb movement disorder) Recurrent inguinal hernia Restless legs syndrome Sciatica Social phobia Therapeutic drug monitoring assay Tobacco user Historical Phobia Procedure/Surgical History ???Repair of inguinal hernia (02/02/2017)???Colonoscopy (03/20/2015)???Arthroscopic knee operation (08/04/2011) Medications What How Much When Instructions Unchanged gabapentin (gabapentin 100 mg oral capsule) 2 Capsules Oral (given by mouth) 2 times a day Unchanged lisinopril (lisinopril 20 mg oral tablet) 1 tab Oral (given by mouth) Every day Unchanged methylphenidate (methylphenidate 20 mg/ 8 hr oral tablet, extended release) 1 tab Oral (given by mouth) Every day Allergies nicotine??(Rash) traMADol??(Angry outburst, Fatigue, Nausea, Headache) [...] (Td) adult/adol 11/18/1995 Recorded Electronically Signed on 12/10/22 09:00 AM Eli Navarrete LEAD CUSTODIAN Electronically Signed on 12/10/22 08:59 AM Prema Daniel Patient Care team information Care Team Personnel Name: Luiz Lyn MD Position: Physician Member Role: Primary Care Physician Address: Address: [address] [place] [id number] Care Team Related Persons Name: ZAMORA NIKKO Address: Home [address] [place], [phone]
--- OUTSIDE RECORDS SUMMARY | 2024-02-18 18:02 | XMS_ITS | Encounter Summary ---
Author Organization [facility] Address [address] [place] [address] Care Team Providers Care Day Porter Name Role Phone Sanjuanita Medina Primary Care Provider [phone] Reason for Referral * Radiology Services (Routine/Next Available) - Closed Specialty Diagnoses / Procedures Referred By Contyung t Referred To Contact Radiology Diagnoses Degenerative disc disease, cervical Procedures CT SPINE-CERVICAL Paige Bell PA [address] [place] [id number] Referral ID Status Reason Start Date Expiration Date Visits Re quested Visits Authorized [id number] Closed 07/27/2012 10/25/2012 1 1 Reason for Visit * Reason Onset Date Comments Results 07/05/2012 Encounter Details Date Type Department Care Team (Late st Contact Info) Description 07/05/2012 Telephone [facility] Neurosurgery - Main [place] [address] [place], [place] [id number] Paige Bell PA [address] [place] [phone] Results Social History Tobacco Use Types Packs/Day Years [...] * Telephone Encounter - Paige Bell - 07/08/2012 1924 EST I explained to the patient that his MRI was again non diagnostic. He will need to go through a CT scan and we will try our best to determine if there is a surgical problem. He is in agreement and we will try and accomplish this at [facility] prior to his follow up visit scheduled for the beginning of July. I will order the CT scan. * Telephone Encounter - Tawny Liao - 07/05/2012 1412 EST Patient had repeat MRI done at [facility] on 06/24/12. Report will be faxed to Paige Bell to call the patient and scan will be pushed onto [facility] system for her review. documented in this encounter Plan of Treatment Scheduled Orders Name Type Priority Associated Diagnoses Orde r Schedule CT SPINE-CERVICAL Imaging Routine Degenerative disc disease, cervical Ordered: 07/08/2012 documented as of this encounter Visit Diagnoses Diagnosis Degenerative disc disease, cervical- Primary Degeneration of cervical intervertebral disc documented in this encounter Care Teams Day Porter Relationship Specialty Start Date End Date Sanjuanita Medina PA [address] [place] [id number] PCP - General 05/05/12 documented as of this encounter
--- OUTSIDE RECORDS SUMMARY | 2024-02-18 18:02 | XMS_ITS | Clinical Summary ---
Author Organization [facility] [place] [address] Care Team Providers Care Sign Hanger Name Role Phone Milena Herr APRN Primary Care Provider [phone] Social History Tobacco Use Types Packs/Day Years Used Date Smoking Tobacco: Never Assessed Sex and Gender Information Value Date Recorded Sex Assigned at Not on file Gender Identity Not on file Sexual Orientation Not on file Plan of Treatment Health Maintenance Due Date Last Done Comments CT Colonography 1970 Colonoscopy 1970 Colorectal Cancer Screening 1970 FIT DNA 1970 FIT 1970 Sigmoidoscopy (10 year) with FIT yearly 1970 Sigmoidoscopy 1970 HIV screen 1988 Hepatitis C Screening 1988 Lipid Screening 1988 Hepatitis B vaccine (0-59 yrs) (1) 1989 Tdap adult 1989 Tetanus vaccine 1989 Zoster vaccine (1 of 2) 2020 Covid-19 Vaccine (1 - 2022-24 season) 2023 Influenza (Flu) vaccine (1 o f 1 - Influenza standard series) 03/20/2024 Care Teams Sign Hanger Relationship Specialty Start Date End Date Milena Herr APRN [address] [place] [address] [place] [address] PCP - General 04/11/11
--- OUTSIDE RECORDS SUMMARY | 2024-02-18 18:02 | XMS_ITS | Continuity of Care Document ---
Author Organization [facility] Address [address] [place] [address] Care Team Providers Care Perfect Binder Operator Name Role Phone Riki Luiz Paige Primary Care Physician Encounter [facility] Date(s): 11/27/22 - 11/27/[address] [address] Discharge Disposition: Home or Self Care Attending Physician: Eli Navarrete NP Admitting Physician: Eli Navarrete NP Referring Physician: Eli Navarrete UROLOGIST PHYSICIAN Allergies, Adverse Reactions, Alerts Substance Reaction Severity [...] Care Center Start Date: 10/23/22 Status: Ordered lisinopril 20 mg oral tablet 20 mg = 1 tab, Oral, Daily, # 90 tab, 3 Refill(s), Pharmacy: [facility] Start Date: 10/23/22 Status: Ordered methylphenidate 20 mg/8 hr oral tablet, extended release 20 mg = 1 tab, Oral, Daily, # 30 tab, 0 Refill(s), Pharmacy: [facility] Start Date: 11/18/22 Status: Ordered Problem List Condition Confirmation Course [...] Member Role: Primary Care Physician Address: Address: [address] [place] [id number] [place] Care Team Related Persons Name: NIKKO ZAMORA Address: Home [address], [id number]
--- OUTSIDE RECORDS SUMMARY | 2024-02-18 18:02 | XMS_ITS | Continuity of Care Document ---
Author Organization [facility] Address [address] [place] [address] Care Team Providers Care Plastic Manager Name Role Phone Luiz Lyn Primary Care Physician [phone] Encounter [facility]CTY_[place] Date(s): 01/29/24 - 01/29/24 [facility] [address] [place] [address] Encounter Diagnosis Wound infection(Discharge Diagnosis) - 01/29/24 Local infection of the skin and subcutaneous tissue, unspecified(Discharge Diagnosis) - 01/29/24 Cellulitis of leg(Discharge Diagnosis) - 01/29/24 Discharge Disposition: Home or Self Care Attending Physician: Piter Lewis MD Admitting Physician: Piter Lewis MD Allergies, Adverse Reactions, Alerts Substance Reaction Severity Status nicotine 1 Rash Unknown Active Wellbutrin Anger Hallucinations Moderate Active Chantix Anger Moderate Active traMADol Angry outburst Fatigue Nausea Headache Unknown Active 1Has to be the clear patch Assessment and Plan Extracted from: Title:ED Provider Note Author:Piter Lewis MD Date:01/29/24 Assessment/Plan 1.??Wound infection??T14.8XXA 2.??Cellulitis of leg??L03.119 Local infection of the skin and subcutaneous tissue, unspecified??L08.9 Orders: amoxicillin-clavulanate 875 mg-125 mg oral tablet, 1 tab, Oral, every 12 hr, X 7 days, # 14 tab, 0 Refill(s), 02/05/24 14:02:00 EDT, Pharmacy: [facility] [place], [place], 188, cm, 10/21/23 8:48:00 EDT, Height, 137.5, kg, 10/21/23 9:13:00 EDT, Weight Dosing Discharge Patient, 01/29/24 14:02:00 EDT, Home Independently, Constant Indicator Patient Discharge Condition Improved Discharge Disposition Home Patient Education Cellulitis, Adult, Hwxa-jk-[id number] Follow Up With When Contact Information Luiz Lyn MD Within 2 to [address] [place] [address] [place] [address]- ?? Additional Instructions: Future Appointments Functional Status 01/29/24 Family Member Travel History No recent t ravel Recent Travel History No recent travel Other exposure to Infectious Disease Non e Immunizations Given and Recorded Vaccine Date Status Refusal Reason tetanus/diphth/pertuss (Tdap) adult/adol 01/29/24 Given tetanus/diphth/pertuss (Tdap) adult/adol 10/24/10 Recorded tetanus-diphth toxoids (Td) adult/adol 03/20/06 Re corded tetanus-diphth toxoids (Td) adult/adol 11/18/95 Re corded Medications amLODIPine 10 mg oral tablet 10 mg = 1 tab, Oral, Daily, 0 Refill(s) Start Date: 10/14/23 Status: Ordered amoxicillin-clavulanate 875 mg-125 mg oral tablet 1 tab, Oral, every 12 hr, X 7 days, # 14 tab, 0 Refill(s), 02/05/24 1:02:00 PM CDT, Pharmacy: [facility] [place], 188, cm, 10/21/23 8:48:00 EDT, Height, 137.5, kg, 10/21/23 9:13:00 EDT, Weight Dosing Start Date: 01/29/24 Stop Date: 02/05/24 Status: Ordered betamethasone dipropionate 0.05% topical cream 1 [place], Topical, BID, # 50 g, 1 Refill(s), Pharmacy: [facility] Start Date: 02/06/23 Status: Ordered DULoxetine 20 mg oral delayed release capsule 20 mg = 1 cap, Oral, BID, 0 Refill(s) Start Date: 09/22/23 Status: Ordered gabapentin 300 mg oral capsule 300 mg = 1 cap, Oral, TID, # 90 cap, 5 Refill(s), Pharmacy: [facility] [place] Start Date: 02/17/23 Status: Ordered lisinopril 20 mg oral tablet 20 mg = 1 tab, Oral, Daily, # 90 tab, 3 Refill(s), Pharmacy: [facility] [place] Start Date: 10/23/22 Status: Ordered magnesium gluconate 500 mg oral tablet 500 mg = 1 tab, Oral, Daily, 0 Refill(s) Start Date: 10/14/23 Status: Ordered metFORMIN 500 mg oral tablet, extended release 0 Refill(s) Start Date: 09/22/23 Status: Ordered methylphenidate 20 mg/8 hr oral tablet, extended release 20 mg = 1 tab, Oral, BID, # 60 tab, 0 Refill(s), Pharmacy: [facility] [place] Start Date: 04/22/23 Status: Ordered traZODone 50 mg oral tablet 50 mg = 1 tab, Oral, every night at bedtime, 0 Refill(s) Start Date: 10/14/23 Status: Ordered Mental Status 01/29/24 Eye Opening Response [place] Spontaneous ly Best Verbal Response Aman Oriented Best Motor Response [place] Obeys comman ds Aman Coma Score 15 Problem List Condition Confirmation Course Effective Dates [...] Temperature Temporal Artery [36-38 Deg C ] 36.1 Deg C (01/29/24 1:08 PM) Peripheral Pulse Rate [60-100 bpm] 88 bp m (01/29/24 1:08 PM) Respiratory Rate [12-24 br/min] 18 br/mi n (01/29/24 1:08 PM) Blood Pressure [90-140/60-90 mmHg] 146/8 1mmHg *HI* (01/29/24 1:08 PM) Mean Arterial Pressure, Cuff [65-140 mmH g] 103 mmHg (01/29/24 1:08 PM) Weight Estimated 137 kg (01/29/24 1:08 PM) Body Mass Index Estimated 38.76 kg/m2 (01/29/24 1:08 PM) Height/Length Estimated 188 cm (01/29/24 1:08 PM) Social History Social History Type Response Tobacco Former tobacco user Tobacco Use:. Quit smoking Mar 2022 per day. Sex Male Hospital Discharge Instructions Patient Education 01/29/2024 13:04:05 Cellulitis, Adult, Ihyu-mq-Qdww Cellulitis, Adult Cellulitis is a skin infection. The infected area is often warm, red, swollen, and sore. It occurs most often in the arms and lower legs. It is very important to get treated for this condition. What are the causes? This condition is caused by bacteria. The bacteria enter through a break in the skin, such as a cut, burn, insect bite, open sore, or crack. What increases the risk? This condition is more likely to occur in people who: ??? Have a weak body defense system (immune system). ??? Have open cuts, cortes, bites, or scrapes on the skin. ??? Are older than 60 years of age. ??? Have a blood sugar problem (diabetes). ??? Have a long-lasting (chronic) liver disease (cirrhosis) or kidney disease. ??? Are very overweight (obese). ??? Have a skin problem, such as: ??? Itchy rash (eczema). ??? Slow movement of blood in the veins (venous stasis). ??? Fluid buildup below the skin (edema). ??? Have been treated with high-energy rays (radiation). ??? Use IV drugs. What are the signs or symptoms? Symptoms of this condition include: ??? Skin that is: ??? Red. ??? Streaking. ??? Spotting. ??? Swollen. ??? Sore or painful when you touch it. ??? Warm. ??? A fever. ??? Chills. ??? Blisters. How is this diagnosed? This condition is diagnosed based on: ??? Medical history. ??? Physical exam. ??? Blood tests. ??? Imaging tests. How is this treated? Treatment for this condition may include: ??? Medicines to treat infections or allergies. ??? Home care, such as: ??? Rest. ??? Placing cold or warm cloths (compresses) on the skin. ??? Hospital care, if the condition is very bad. Follow these instructions at home: Medicines ??? Take iswq-iny-rqcbqys and prescription medicines only as told by your doctor. ??? If you were prescribed an antibiotic medicine, take it as told by your doctor. Do not stop taking it even if you start to feel better. General instructions ??? Drink enough fluid to keep your pee (urine) pale yellow. ??? Do not touch or rub the infected area. ??? Raise (elevate) the infected area above the level of your heart while you are sitting or lying down. ??? Place cold or warm cloths on the area as told by your doctor. ??? Keep all follow-up visits as told by your doctor. This is important. Contact a doctor if: ??? You have a fever. ??? You do not start to get better after 1???2 days of treatment. ??? Your bone or joint under the infected area starts to hurt after the skin has healed. ??? Your infection comes back. This can happen in the same area or another area. ??? You have a swollen bump in the area. ??? You have new symptoms. ??? You feel ill and have muscle aches and pains. Get help right away if: ??? Your symptoms get worse. ??? You feel very sleepy. ??? You throw up (vomit) or have watery poop (diarrhea) for a long time. ??? You see red streaks coming from the area. ??? Your red area gets larger. ??? Your red area turns dark in color. These symptoms may represent a serious problem that is an emergency. Do not wait to see if the symptoms will go away. Get medical help right away. Call your local emergency services (911 in the [place] Do not drive yourself to the hospital. Summary ??? Cellulitis is a skin infection. The area is often warm, red, swollen, and sore. ??? This condition is treated with medicines, rest, and cold and warm cloths. ??? Take all medicines only as told by your doctor. ??? Tell your doctor if symptoms do not start to get better after 1???2 days of treatment. This information is not intended to replace advice given to you by your health care provider. Make sure you discuss any questions you have with your health care provider. Document Revised: 04/16/2022 Document Reviewed: 04/17/2022 [employer] Patient Education ?? 2022 [employer]. Follow Up Care 01/29/2024 12:38:28 With:Luiz Lyn MD Address: [address] [place] [phone]- When:2 to 4 days Physician Emergency department Note * Piter Lewis MD: PERFORM, MODIFY, MODIFY, MODIFY Event Display: ED Note Physician Authored Date: [id number] JEAN MARIE ZAMORA :1970 Age:53 years Sex:Male Visit Date:01/29/2024 Primary Care Physician: Luiz Lyn MD Basic Information Time Seen: Piter Lewis MD / 01/29/2024 13:19 Chief Complaint i cut my leg last week and now it's all red, I have been using soap, neosporin, elevation etc. Redness noted to right lower leg on arrival. History Of Present Illness: Patient presents emergency department complaining of a??redness area in his??right??lower extremity??where he had a cut.?? Denies any pain but reports he was concerned because the redness around the cut and he has had??not had a tetanus shot in 10 years Review of Systems: Constitutional: No fevers, chills, sweats Eye: No recent visual problems ENT: No ear pain, nasal congestion, sore throat Respiratory: No shortness of breath, cough Cardiovascular: No Chest pain, palpitations, syncope Gastrointestinal: No nausea, vomiting, diarrhea Genitourinary: No hematuria Donald/Lymph: Negative for bruising tendency, swollen lymph glands Endocrine: Negative for excessive thirst, excessive hunger Musculoskeletal: No back pain, neck pain, joint pain, muscle pain, decreased range of motion Integumentary: No rash, pruritus, abrasions Neurologic: Alert & oriented X 4 Psychiatric: No anxiety, depression Physical Exam Vitals & Measurements T:??36.1?C ??(Temporal Artery)?? HR:??88??(Peripheral)?? RR:??18?? BP:??146/81?? SpO2:??97%?? HT:??188??cm?? WT:??137??kg??(Estimated)?? BMI:??38.76?? O2 Therapy:??Room air?? General: Alert and oriented, well nourished, no acute distress. Eye: PERRL, EOMI, normal conjunctiva. HENT: Normocephalic, clear tympanic membranes, normal hearing, moist oral mucosa, no scleral icterus, no sinus tenderness. Neck: Supple, non-tender, no carotid bruits, no JVD, no lymphadenopathy. Lungs: Clear to auscultation and percussion, non-labored respiration. Heart: Normal rate, regular rhythm, no murmur, gallop or edema. Breast: No lumps, no bumps, no scars, normal nipples. Abdomen: Soft, non-tender, non-distended, normal bowel sounds, no masses. Musculoskeletal: Normal range of motion and strength, healing??3 cm laceration lateral aspect the right??lower leg with??surrounding??erythema Skin: Skin is warm, dry and appropriate for ethnicity, no rashes or lesions. Neurologic: Awake, alert and oriented X4, CN II-XII intact. Psychiatric: Cooperative, appropriate mood and affect. Medical Decision Making: MDM: Summary: Patient sustained a small superficial laceration on the right leg days ago and now has surrounding erythema??compatible with early cellulitis. ??He will be treated with Augmentin??and he will follow-up with his primary care doctor ? Data Review Analysis All the data on this patient was reviewed by me including laboratory??and imaging studies??as well as bedside studies performed by me ?? Independent review of Studies Imaging ?? Lab: ? Risk Stratification: Should with mild wound infection who received a tetanus shot in the emergency department and will receive Augmentin at discharge ? Differential Diagnosis: 1.?? Wound??infection 2.?? Cellulitis 3.?? Necrotizing fasciitis 4.?? Abscess 5. ? Consultants: ? Shared disposition: Patient understands disposition will do accordingly and will return if??the redness increases ?? Impression:? Procedure No Qualifying Data Assessment/Plan 1.??Wound infection??T14.8XXA 2.??Cellulitis of leg??L03.119 Local infection of the skin and subcutaneous tissue, unspecified??L08.9 Orders: amoxicillin-clavulanate 875 mg-125 mg oral tablet, 1 tab, Oral, every 12 hr, X 7 days, # 14 tab, 0 Refill(s), 02/05/24 14:02:00 EDT, Pharmacy: [facility] [place], 188, cm, 10/21/23 8:48:00 EDT,Height, 137.5, kg, 10/21/23 9:13:00 EDT, Weight Dosing Discharge Patient, 01/29/24 14:02:00 EDT, Home Independently, Constant Indicator Patient Discharge Condition Improved Discharge Disposition Home Patient Education Cellulitis, Adult, Tspg-nn-Bcyd Follow Up With When Contact Information Luiz Lyn MD Within 2 to [address] [place] [address] [place] [address]- Additional Instructions: Medication Reconciliation New Prescription amoxicillin-clavulanate (amoxicillin-clavulanate 875 mg-125 mg oral tablet)1 tab Oral (given by mouth) every 12 hours for 7 Days. Refills: 0. ?? Unchanged amLODIPine (amLODIPine 10 mg oral tablet)1 tab Oral (given by mouth) every day. ?? betamethasone topical (betamethasone dipropionate 0.05% topical cream)1 Application Topical (on theskin) 2 times a day. Refills: 1. ?? DULoxetine (DULoxetine 20 mg oral delayed release capsule)1 Capsules Oral (given by mouth) 2 times a day. ?? gabapentin (gabapentin 300 mg oral capsule)1 Capsules Oral (given by mouth) 3 times a day. Refills:5. ?? lisinopril (lisinopril 20 mg oral tablet)1 tab Oral (given by mouth) every day. Refills: 3. ?? magnesium gluconate (magnesium gluconate 500 mg oral tablet)1 tab Oral (given by mouth) every day. ?? metFORMIN (metFORMIN 500 mg oral tablet, extended release) ?? methylphenidate (methylphenidate 20 mg/8 hr oral tablet, extended release)1 tab Oral (given by mouth) 2 times a day. Refills: 0. ?? traZODone (traZODone 50 mg oral tablet)1 tab Oral (given by mouth) every night at bedtime. Problem List/Past Medical History Ongoing Arthropathy Asthma Attention deficit hyperactivity disorder, combined type Chronic constipation Cubital tunnel syndrome on left Degenerative joint disease (DJD) of lumbar spine Depressive disorder Generalized anxiety disorder Hypertension Hypertensive disorder Impaired fasting glucose Inguinal hernia without obstruction or gangrene Left arm numbness Left arm pain Left [...] phobia Therapeutic drug monitoring assay Tobacco user Varicose veins of legs Historical Insomnia Phobia Procedure/Surgical History ???Colonoscopy (10/21/2023)???Repair of inguinal hernia (02/02/2017)???Colonoscopy (03/20/2015)???bilateral Arthroscopic knee operation (08/04/2011) Allergies Chantix??(Anger) Wellbutrin??(Anger, Hallucinations) nicotine??(Rash) traMADol??(Angry outburst, Fatigue, Nausea, Headache) Social History Alcohol Never Electronic Cigarette/Vaping Electronic Cigarette Use: Never. Home/Environment Lives with Spouse. Feels unsafe at home: No. Nutrition/Health Caffeine intake amount: 2 cups coffee daily. Substance Use Never Tobacco Former tobacco user Tobacco Use:. Quit smoking Mar 2022 per day. Family History Cancer: Other.Negative: Other. Heart disease: Mother and Father. Electronically Signed on 01/29/2024 14:05 EDT Piter Lewis MD Emergency department Discharge instructions * Piter Lewis MD: PERFORM, MODIFY Event Display: ED Discharge Information Authored Date: [id number] JEAN MARIE ZAMORA :1970 Age:53 years Sex:Male Visit Date:01/29/2024 Primary Care Physician: Luiz Lyn MD Discharge Instructions We would like to thank you for allowing us to assist you with your healthcare needs. The following includes patient education materials and information regarding your injury/illness. Diagnosis from Today's Visit Wound infection Cellulitis of leg Local infection of the skin and subcutaneous tissue, unspecified Discharge Vitals Temperature??(Temporal Artery) 97.0 ??F (36.1 ??C) Heart Rate??(Peripheral) 88 Respiratory Rate?? 18 Blood Pressure?? 146/81?? SpO2?? 97% Height?? 74.02 in (188 cm) Weight??(Estimated) 302.09 lb (137 kg) BMI?? 38.76 Allergies Chantix??(Anger) Wellbutrin??(Anger, Hallucinations) nicotine??(Rash) traMADol??(Angry outburst, Fatigue, Nausea, Headache) What to Do Next You Need to Schedule the Following Appointments Follow Up with??Luiz Lyn MD When:??Within 2 to 4 days Where: [address] [place] [address] [place] [address]- Upcoming Scheduled Appointments Thursday 1:30 PM EDT ?? With: Eli Navarrete L CHILD DEVELOPMENT ASSISTANT Where: [facility] [address] [place] [phone] Status: Confirmed You were treated today on [...] Much When Why Instructions Next Dose New amoxicillin-clavulanate (amoxicillin-clavulanate 875 mg-125 mg oral tablet) 1 tab Oral (given by mouth) Every 12 hours Duration: 7 Days Pickup at [facility] Unchanged amLODIPine (amLODIPine 10 mg oral tablet) [...] mouth) Every night at bedtime Pharmacy Information [facility] [place]: [address] [place], [place] [id number] [phone] Education Materials Cellulitis, Adult Cellulitis is a skin infection. The infected area is often warm, red, swollen, and sore. It occurs most often in the arms and lower legs. It is very important to get treated for this condition. What are the causes? This condition is caused by bacteria. The bacteria enter through a break in the skin, such as a cut, burn, insect bite, open sore, or crack. What increases the risk? This condition is more likely to occur in people who: ? Have a weak body defense system (immune system). ? Have open cuts, cortes, bites, or scrapes on the skin. ? Are older than 60 years of age. ? Have a blood sugar problem (diabetes). ? Have a long-lasting (chronic) liver disease (cirrhosis) or kidney disease. ? Are very overweight (obese). ? Have a skin problem, such as: ? Itchy rash (eczema). ? Slow movement of blood in the veins (venous stasis). ? Fluid buildup below the skin (edema). ? Have been treated with high-energy rays (radiation). ? Use IV drugs. What are the signs or symptoms? Symptoms of this condition include: ? Skin that is: ? Red. ? Streaking. ? Spotting. ? Swollen. ? Sore or painful when you touch it. ? Warm. ? A fever. ? Chills. ? Blisters. How is this diagnosed? This condition is diagnosed based on: ? Medical history. ? Physical exam. ? Blood tests. ? Imaging tests. How is this treated? Treatment for this condition may include: ? Medicines to treat infections or allergies. ? Home care, such as: ? Rest. ? Placing cold or warm cloths (compresses) on the skin. ? Hospital care, if the condition is very bad. Follow these instructions at home: Medicines ? Take jbyg-teq-wpvzbhz and prescription medicines only as told by your doctor. ? If you were prescribed an antibiotic medicine, take it as told by your doctor. Do not stop taking it even if you start to feel better. General instructions ? Drink enough fluid to keep your pee (urine) pale yellow. ? Do not touch or rub the infected area. ? Raise (elevate) the infected area above the level of your heart while you are sitting or lying down. ? Place cold or warm cloths on the area as told by your doctor. ? Keep all follow-up visits as told by your doctor. This is important. Contact a doctor if: ? You have a fever. ? You do not start to get better after 1???2 days of treatment. ? Your bone or joint under the infected area starts to hurt after the skin has healed. ? Your infection comes back. This can happen in the same area or another area. ? You have a swollen bump in the area. ? You have new symptoms. ? You feel ill and have muscle aches and pains. Get help right away if: ? Your symptoms get worse. ? You feel very sleepy. ? You throw up (vomit) or have watery poop (diarrhea) for a long time. ? You see red streaks coming from the area. ? Your red area gets larger. ? Your red area turns dark in color. These symptoms may represent a serious problem that is an emergency. Do not wait to see if the symptoms will go away. Get medical help right away. Call your local emergency services (911 in the [place] Do not drive yourself to the hospital. Summary ? Cellulitis is a skin infection. The area is often warm, red, swollen, and sore. ? This condition is treated with medicines, rest, and cold and warm cloths. ? Take all medicines only as told by your doctor. ? Tell your doctor if symptoms do not start to get better after 1???2 days of treatment. This information is not intended to replace advice given to you by your health care provider. Make sure you discuss any questions you have with your health care provider. Document Revised: 04/16/2022 Document Reviewed: 04/17/2022 Elsevier Patient Education ?? 2022 [employer] Patient/Auto Specialty Services Manager Signature Patient Name:MARIA GUADALUPE ZAMORAMARIAJOSE Croft I have received this information and my questions have been answered. Patient/Auto Specialty Services Manager Name: Patient/Auto Specialty Services Manager Signature: Relationship to Patient: Witness Name/Signature: Date: Electronically Signed on: 01/29/2024 14:04 EDTSigned by:Piter Hdz MD: PERFORM, MODIFY Event Display: ED Discharge Information Authored Date: [id number] JEAN MARIE ZAMORA :1970 Age:53 years Sex:Male Visit Date:01/29/2024 Primary Care Physician: Luiz Lyn MD Discharge Instructions We would like to thank you for allowing us to assist you with your healthcare needs. The following includes patient education materials and information regarding your injury/illness. Discharge Vitals Temperature??(Temporal Artery) 97.0 ??F (36.1 ??C) Heart Rate??(Peripheral) 88 Respiratory Rate?? 18 Blood Pressure?? 146/81?? SpO2?? 97% Height?? 74.02 in (188 cm) Weight??(Estimated) 302.09 lb (137 kg) BMI?? 38.76 Allergies Chantix??(Anger) Wellbutrin??(Anger, Hallucinations) nicotine??(Rash) traMADol??(Angry outburst, Fatigue, Nausea, Headache) What to Do Next Upcoming Scheduled Appointments Thursday 1:30 PM EDT ?? With: Carmela [facility], Eli Montague CHILD DEVELOPMENT ASSISTANT Where: [facility] [address] [place] [address] Status: Confirmed You were treated [...] Much When Why Instructions Next Dose New amoxicillin-clavulanate (amoxicillin-clavulanate 875 mg-125 mg oral tablet) 1 tab Oral (given by mouth) Every 12 hours Duration: 7 Days Pickup at [facility] Unchanged amLODIPine (amLODIPine 10 mg oral tablet) [...] mouth) Every night at bedtime Pharmacy Information [facility]: [address] [place], [place] [id number] [phone] Patient/Auto Specialty Services Manager Signature Patient Name:NOAH JEAN MARIE Croft I have received this information and my questions have been answered. Patient/Auto Specialty Services Manager Name: Patient/Auto Specialty Services Manager Signature: Relationship to Patient: Witness Name/Signature: Date: Electronically Signed on: 01/29/2024 14:03 EDTSigned by:MARIE Patient Care team information Care Team Personnel Name: Luiz Lyn MD Position: Physician Member Role: Primary Care Physician Address: Address: [address] [place] [address] [place] [address]- Care Team Related Persons Name: NIKKO ZAMORA Address: Home [address] [place], [id number]
--- OUTSIDE RECORDS SUMMARY | 2024-02-18 18:02 | XMS_ITS | Continuity of Care Document ---
Author Organization [facility] Address [address] [place] [address] Care Team Providers Care Health Insurance Specialist Name Role Phone Luiz Lyn Primary Care Physician [phone] Encounter [place]CT[place] Date(s): 01/26/23 - 01/26/[address] [phone] Discharge Disposition: Home or Self Care Attending [...] TID, # 90 cap, 0 Refill(s), Pharmacy: [facility] Start Date: 01/26/23 Status: Ordered lisinopril 20 mg oral tablet 20 mg = 1 tab, Oral, Daily, # 90 tab, 3 Refill(s), Pharmacy: [facility] Start Date: 10/23/22 Status: Ordered methylphenidate 20 mg/8 hr oral tablet, extended release 20 mg = 1 tab, Oral, BID, # 60 tab, 0 Refill(s), Pharmacy: [facility] Start Date: 01/26/23 Status: Ordered Problem List [...] Laboratory List Name Date Basic Metabolic Panel (BMP) 01/26/23 Hemoglobin A1c 01/26/23 Most recent to oldest [Reference Range]: 1 BUN [7-18 mg/dL] 12 mg/dL (01/26/23 3:51 PM) Glucose Level [74-106 mg/dL] 97 mg/dL (01/26/23 3:51 PM) Potassium Level [3.5-5.1 mmol/L] 3.8 mmo l/L (01/26/23 3:51 PM) Sodium Level [136-145 mmol/L] 139 mmol/L (01/26/23 3:51 PM) Calcium Level [8.5-10.1 mg/dL] 8.9 mg/dL (01/26/23 3:51 PM) CO2 [21-32 mmol/L] 27 mmol/L (01/26/23 3:51 PM) eGFR Non-AA [>=60] 80 (01/26/23 3:51 PM) eGFR AA [>=60] 80 (01/26/23 3:51 PM) Hemoglobin A1c [4.0-6.0 %] 6.5 % *HI* (01/26/23 3:51 PM) Chloride Level [98-107 mmol/L] 100 mmol/ L (01/26/23 3:51 PM) Creatinine Level [0.70-1.30 mg/dL] 1.11 mg/dL (01/26/23 3:51 PM) Social History Social History Type Response Tobacco Former tobacco user Tobacco Use:. Quit smoking Mar 2022 per day. Sex Male Patient Care team information Care Team Personnel Name: Luiz Lyn MD Position: Physician Member Role: Primary Care Physician Address: Address: [address] [place] [phone] [place] Care Team Related Persons Name: NIKKO ZAMORA Address: Home [address] [place], [phone]
--- OUTSIDE RECORDS SUMMARY | 2024-02-18 18:02 | XMS_ITS | Encounter Summary ---
Author Organization [facility] [place] [address] Care Team Providers Care Log Roller Name Role Phone Milena Herr APRN Primary Care Provider [phone] Encounter Details Date Type Department Care Team (Late st Contact Info) Description 08/10/2004 Orders Only Lab [facility] [place] [id number] Miguel Logan MD PATHOLOGY DEPT [address] [place] [address] [place] [address] Social History Tobacco Use Types Packs/Day Years Used Date Smoking Tobacco: Never Assessed Sex and Gender Information Value Date Recorded Sex Assigned at Not on file Gender Identity Not on file Sexual Orientation Not on file documented as of this encounter Plan of Treatment Not on file documented as of this encounter Procedures Procedure Name Priority Date/Time Associated Diagnosis Comments SURGICAL PATHOLOGY REPORT Routine 08/10/2004 10:55 AM EST documented in this encounter Results * Surgical Pathology Report (08/10/2004 10:55 AM EST) Surgical Pathology Report [id number] ? Location: The signing pathologist has (i) examined the relevant preparation(s) for the specimen(s) and (ii) rendered or confirmed the diagnosis(es). . ?Pathology Surgical Pathology Final Report Clinical Information Specimen Submitted: CONSULTATION CASE A - 2 slides, 1 BLK labeled [id number], collection date 08/06/04. [id number] Report to: Miguel Logan MD Department of Pathology [place], [place] ??[address] [facility] pathology slide(s) are reviewed. ??Refer to Diagnosis and Specimen Submitted for specific case information. For the full text of the [facility] report(s) please refer to Non-DH Documentation Pathology in the Clinical Information System (CIS). Microscopic Description Slides reviewed, microscopic description not recorded. 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 CR-0 08/14/04 AAS 08/15/04 Verified by: ? Agapito Alejandro MD ?Pathologist ?(Electronic Signature) The attending pathologist whose signature appears on this report has reviewed all diagnostic slides and has edited the gross and/or microscopic portion of the report in rendering the final pathologic diagnosis. [facility] 08/10/2004 10:5 5 AM EST Miguel Logan MD PATHOLOGY/CYTOLOGY ORDERABLES [facility] documented in this encounter Visit Diagnoses Not on filedocumented in this encounter Care Teams Log Roller Relationship Specialty Start Date End Date Milena Herr APRN [address] [place] [address] [place] [address] PCP - General 04/11/11 documented as of this encounter
--- OUTSIDE RECORDS SUMMARY | 2024-02-18 18:02 | XMS_ITS | Encounter Summary ---
Author Organization [facility] Address [address] [place] [address] Care Team Providers Care Stained Glass Glazier Helper Name Role Phone Sanjuanita Medina Primary Care Provider [phone] Reason for Visit * Reason Onset Date Comments Follow-up 03/23/2013 from 05/2012 florence ointment Encounter Details Date Type Department Care Team (Late st Contact Info) Description 03/23/2013 Telephone [facility] Neurosurgery - [place] [address] [place], [place] [id number] Paige Bell PA [address] [place] [id number] Follow-up (from 05/2012 appointment) Social History Tobacco Use Types Packs/Day Years [...] encounter Miscellaneous Notes * Telephone Encounter - Candice Monson V. - 03/23/2013 0903 EDT Patient last saw Paige Bell in May of 2012. Pt did PT as advised and had more scans as advised and then states that he never heard back on what to do next. Patient calling to ask if he needs to have more treatments documented in this encounter Plan of Treatment Not on file documented as of this encounter Visit Diagnoses Not on filedocumented in this encounter Care Teams Stained Glass Glazier Helper Relationship Specialty Start Date End Date Sanjuanita Medina PA [address] [place] [address] PCP - General 05/05/12 documented as of this encounter
--- OUTSIDE RECORDS SUMMARY | 2024-02-18 18:02 | XMS_ITS | Continuity of Care Document ---
Author Organization [facility] Address [address] [place] [address] Care Team Providers Care Legal Paraprofessional Name Role Phone Luiz Lyn Primary Care Physician [phone] Encounter NCTY_PA Date(s): 10/21/23 - 10/21/[address] [address] Discharge Disposition: Home or Self Care Attending Physician: Tip Orozco MD Admitting Physician: Tip Orozco MD Referring Physician: Tip Orozco MD Allergies, Adverse Reactions, Alerts Substance Reaction Severity Status nicotine 1 Rash Unknown Active Wellbutrin Anger Hallucinations Moderate Active Chantix Anger Moderate Active traMADol Angry outburst Fatigue Nausea Headache Unknown Active 1Has to be the clear patch Assessment and Plan Extracted from: Title:H & P Author:Tip Orozco Date:10/21/23 Ordered: Dextrose 5% in Lactated Ringers Injection 500 mL, Total Volume (mL): 500, 500 mL, Soln-IV, IV, 30 mL/hr, Start Date: 10/21/23 9:13:00 EDT, 137.5 kg, Populate Charting Weight From Order, 2.68, m2 Valium, 2.5 mg = 0.5 mL, IV Push, Soln, every 2 min for 10 times, PRN sedation, First Dose: 10/21/23 8:31:00 EDT, Stop Date: Limited # of times, Physician Stop, Routine Valium, 5 mg = 1 mL, IV Push, Soln, every 2 min for 10 times, PRN sedation, First Dose: 10/21/23 8:31:00 EDT, Stop Date: Limited # of times, Physician Stop, Routine Valium, 7.5 mg = 1.5 mL, IV Push, Soln, every 2 min for 10 times, PRN sedation, First Dose: 10/21/23 8:31:00 EDT, Stop Date: Limited # of times, Physician Stop, Routine Valium, 10 mg = 2 mL, IV Push, Soln, every 2 min for 10 times, PRN sedation, First Dose: 10/21/23 8:31:00 EDT, Stop Date: Limited # of times, Physician Stop, Routine fentaNYL, 25 mcg = 0.5 mL, IV Push, Soln, every 2 min for 12 times, PRN sedation, First Dose: 10/21/23 8:31:00 EDT, Stop Date: Limited # of times, Physician Stop, Routine fentaNYL, 50 mcg = 1 mL, IV Push, Soln, every 2 min for 12 times, PRN sedation, First Dose: 10/21/23 8:31:00 EDT, Stop Date: Limited # of times, Physician Stop, Routine fentaNYL, 75 mcg = 1.5 mL, IV Push, Soln, every 2 min for 12 times, PRN sedation, First Dose: 10/21/23 8:31:00 EDT, Stop Date: Limited # of times, Physician Stop, Routine fentaNYL, 100 mcg = 2 mL, IV Push, Soln, every 2 min for 12 times, PRN sedation, First Dose: 10/21/23 8:31:00 EDT, Stop Date: Limited # of times, Physician Stop, Routine flumazenil, 0.2 mg = 2 mL, IV Push, Soln, As Directed for 10 times, PRN sedation, Administer over: 15 seconds, First Dose: 10/21/23 8:31:00 EDT, Stop Date: Limited # of times, Physician Stop, Routine lidocaine 1% injectable solution, 1 mg 0.1 mL, Intradermal, Soln, As Directed, PRN other (see comment), First Dose: 10/21/23 9:13:00 EDT, Routine Versed, 1 mg = 1 mL, IV Push, Soln, every 2 min for 10 times, PRN sedation, First Dose: 10/21/23 8:31:00 EDT, Stop Date: Limited # of times, Physician Stop, Routine Versed, 2 mg = 2 mL, IV Push, Soln, every 2 min for 10 times, PRN sedation, First Dose: 10/21/23 8:31:00 EDT, Stop Date: Limited # of times, Physician Stop, Routine Versed, 3 mg = 3 mL, IV Push, Soln, every 2 min for 10 times, PRN sedation, First Dose: 10/21/23 8:31:00 EDT, Stop Date: Limited # of times, Physician Stop, Routine Versed, 4 mg = 4 mL, IV Push, Soln, every 2 min for 10 times, PRN sedation, First Dose: 10/21/23 8:31:00 EDT, Stop Date: Limited # of times, Physician Stop, Routine naloxone, 0.08 mg = 0.2 mL, IV Push, Soln, every 2 min for 10 times, PRN sedation, First Dose: 10/21/23 8:31:00 EDT, Stop Date: Limited # of times, Physician Stop, Routine NPO, 10/21/23 9:13:00 EDT, Constant Indicator Obtain Surgical Consent, 10/21/23 9:13:00 EDT, Colonoscopy Peripheral IV Insertion, 10/21/23 9:13:00 EDT Proceed with colonoscopy, procedure indications and risks discussed. ??Consent signed and on the chart. Future Appointments Functional Status 10/21/23 ADLs Independent 10/14/23 Living Situation Home independently Recent Travel History No recent travel Immunizations Given and Recorded Vaccine Date [facility]: [facility] Status: Ordered bisacodyl 5 mg oral tablet See Instructions, Take 10 mg total, # 2 tab, 0 Refill(s), 10/22/23 7:26:00 AM CDT, Pharmacy: [facility] [place], [place], cm, 05/07/23 13:24:00 EDT, Height Start [...] [facility] Start [facility]: 10/23/22 Status: Ordered magnesium gluconate [...] [facility] Start Date: 04/22/23 Status: Ordered MiraLax oral powder for reconstitution 238 g, Oral, Daily, Mix 238 g in 64 oz of a clear non carbonated beverage. Avoid red beverages., # 238 g, 0 Refill(s), 10/22/23 7:25:00 AM CDT, Pharmacy: [facility] [place], [place], cm, 05/07/23 13:24:00 EDT, Height Start Date: 09/25/23 Stop Date: 10/22/23 Status: Ordered traZODone 50 mg oral tablet [...] hernia 1 02/01/17 Completed Colonoscopy 03/19/15 Completed bilateral Arthroscopic knee operation 2 08/03/11 Completed 1bilateral, recurrent 2right knee arthroscopy, partial medial meniscectomy and chondroplasty medial tibial plateau Results Laboratory List Name Date Glucose POCT 10/21/23 Most recent to oldest [Reference Range]: 1 Glucose POC [74-106 mg/dL] 111 mg/dL *HI* (10/21/23 9:00 AM) Vital Signs Most recent to oldest [Reference Range]: 1 2 3 Temperature Oral [35.8-37.3 Deg C] 36.8 Deg C (10/21/23 8:48 AM) Temperature Temporal Artery [36-38 Deg C] 36.9 Deg C (10/21/23 10:47 AM) 36.6 Deg C (10/21/23 10:15 AM) 36.3 Deg C (10/21/23 10:02 AM) Temperature Temporal Artery (DegF) [97.3-100 Deg F] 98.42 Deg F (10/21/23 10:47 AM) 97.88 Deg F (10/21/23 10:15 AM) 97.34 Deg F (10/21/23 10:02 AM) Peripheral Pulse Rate [60-100 bpm] 85 bpm (10/21/23 10:47 AM) 83 bpm (10/21/23 10:45 AM) 89 bpm (10/21/23 10:30 AM) Heart Rate Monitored [60-100 bpm] 85 bpm (10/21/23 10:47 AM) 84 bpm (10/21/23 10:45 AM) 89 bpm (10/21/23 10:30 AM) Respiratory Rate [12-24 br/min] 19 br/min (10/21/23 10:47 AM) 21 br/min (10/21/23 10:45 AM) 21 br/min (10/21/23 10:30 AM) Blood Pressure [90-140/60-90 mmHg] 136/88mmHg (10/21/23 10:47 AM) 121/67mmHg (10/21/23 10:45 AM) 126/66mmHg (10/21/23 10:30 AM) Mean Arterial Pressure, Cuff [65-140 mmHg] 104 mmHg (10/21/23 10:47 AM) 85 mmHg (10/21/23 10:45 AM) 86 mmHg (10/21/23 10:30 AM) Weight 137.5 kg (10/21/23 8:48 AM) Weight Dosing 137.500 kg (10/21/23 8:48 AM) Height 188 cm (10/21/23 8:48 AM) Body Mass Index 38.9 kg/m2 (10/21/23 8:48 AM) Social History Social History Type Response Tobacco Former tobacco user Tobacco Use:. Quit smoking Mar 2022 per day. Sex Male Hospital Discharge Instructions Patient Education 10/21/2023 09:03:45 ss colonoscopy discharge instructions (CUSTOM) COLONOSCOPY / SIGMOIDOSCOPY Following day: Return to full activity, including work. Diet: Eat and drink normally, unless instructed otherwise. Treatment for common after affects: Mild abdominal pain, bloating, or excessive gas: Rest, eat lightly and use a heating pad. Symptoms to watch for and report to your physician: SEVERE abdominal pain or bloating. Fever within 24 hours after procedure. A large amount of rectal bleeding. (A small amount of blood from the rectum is not serious, especially if hemorrhoids are present.) If a polyp has been removed- for the next seven days: Do not take aspirin. If you did NOT stop taking aspirin before your procedure, continue taking it even if you???ve had a polyp removed. If bright red rectal bleeding occurs, call your physician. If you have had a Colonoscopy: Do not attempt to drive a vehicle or operate power equipment of any kind for at least 24 hours after discharge from the hospital. Do not consume alcoholic beverages or other mood-altering drugs on the day of surgery. Mild irritation at needle site: Apply warm, moist pack to area for 20 minutes four times a day for 2-3 days. Call physician if persistent redness and/or drainage at needle site. In the event of any problems after surgery, do not hesitate to contact your doctor, [facility] , or the Emergency Room at [phone]. Diagnosis: Diverticulosis Doctor: Kindra Follow Up Appointment: There were no polyps seen today, patient should have a repeat exam in 10 years. Discharge instructions * Jade Lackey RN: PERFORM Event Display: Discharge Instructions Authored Date: [id number] JEAN MARIE ZAMORA :1970 Age:53 years Sex:Male Visit Date:10/21/2023 Primary Care Physician: Luiz Lyn MD Hospital Discharge Instructions We would like to thank you for allowing us to assist you with your healthcare needs. The following includes patient education materials and information regarding your injury/illness. Your Next Steps Discharge Orders Discharge Patient Instructions, Rest today. Resume diet and activities as tolerated. Scheduled Future Appointments Thursday 1:30 PM EDT ?? With: Eli Navarrete DELIVERY DRIVER/SUPERVISOR Where: [facility] [address] [place] [address] [place] [address] Status: Confirmed Medications What How Much When Why Instructions Next Dose Changed DULoxetine (DULoxetine 20 mg oral delayed release capsule) 1 Capsules Oral (given by mouth) 2 times a day Unchanged amLODIPine (amLODIPine 10 mg oral tablet) 1 tab Oral (given by mouth) Every day Unchanged betamethasone topical (betamethasone dipropionate 0.05% topical cream) 1 Application Topical (on the skin) 2 times a day Cubital tunnel syndrome on left Unchanged bisacodyl (bisacodyl 5 mg oral tablet) See instructions Screening for colon cancer Take 10 mg total ?? Unchanged gabapentin (gabapentin 300 mg oral capsule) [...] Attention deficit hyperactivity disorder, combined type Unchanged polyethylene glycol 3350 (MiraLax oral powder for reconstitution) 238 Gram Oral (given by mouth) Every day Screening for colon cancer Mix 238 g in 64 oz of a clear non carbonated beverage. Avoid red beverages. ?? Unchanged traZODone (traZODone 50 mg oral tablet) 1 tab Oral (given by mouth) Every night at bedtime Your Summary Your Care Team Admitting Physician - Kindra KLEIN, Tip Huntley MD Attending Physician - Kindra KLEIN, Tip Huntley MD Primary Care Physician - Luiz Lyn MD Referring Physician - Kindra KLEIN, Tip Huntley MD Education Materials COLONOSCOPY / SIGMOIDOSCOPY ? Following day: Return to full activity, including work. Diet: Eat and drink normally, unless instructed otherwise. ? Treatment for common after affects: Mild abdominal pain, bloating, or excessive gas: Rest, eat lightly and use a heating pad. ? Symptoms to watch for and report to your physician: SEVERE abdominal pain or bloating. ? Fever within 24 hours after procedure. ? A large amount of rectal bleeding. (A small amount of blood from the rectum is not serious, especially if hemorrhoids are present.) ? If a polyp has been removed- for the next seven days: Do not take aspirin. If you did NOT stop taking aspirin before your procedure, continue taking it even if you???ve had a polyp removed. ? If bright red rectal bleeding occurs, call your physician. ? If you have had a Colonoscopy: Do not attempt to drive a vehicle or operate power equipment of any kind for at least 24 hours after discharge from the hospital. ? Do not consume alcoholic beverages or other mood-altering drugs on the day of surgery. ? Mild irritation at needle site: Apply warm, moist pack to area for 20 minutes four times a day for 2-3 days. ? Call physician if persistent redness and/or drainage at needle site. ? In the event of any problems after surgery, do not hesitate to contact your doctor, [facility] , or the Emergency Room at [phone]. Diagnosis: Diverticulosis Doctor: Kindra Follow Up Appointment: There were no polyps seen today, patient should have a repeat exam in 10 years. Patient/Director Of Operations For Therapy Signature Patient Name:JEAN MARIE ZAMORA I have received this information and my questions have been answered. Patient/Director Of Operations For Therapy Name: Patient/Director Of Operations For Therapy Signature: Relationship to Patient: Witness Name/Signature: Date: Electronically Signed on: 10/21/2023 10:23 EDTSigned by:JOSE DE JESUS History and physical note * Tip Orozco MD: PERFORM Event Display: History and Physical Authored Date: [id number] JEAN MARIE ZAMORA :1970 Age:53 years Sex:Male Visit Date:10/21/2023 Primary Care Physician: Luiz Lyn MD History of Present Illness 53-year-old male??seen for follow-up colonoscopy. ??Last examination 2014.?? He is currently asymptomatic.?? Family history is negative. Review of Systems No history of exertional chest pain or pressure.?? No current cough or sputum production.?? He doeshave obstructive sleep apnea??and wears a CPAP mask.?? No chronic abdominal pain. ??He does have chronic left groin pain he has had??4 prior hernia repairs.?? No history of rectal bleeding. Physical Exam Vitals & Measurements T:??36.8?C ??(Oral)?? HR:??79??(Monitored)?? RR:??18?? BP:??133/88?? SpO2:??97%?? HT:??188??cm?? WT:??137.5??kg?? BMI:??38.9?? Pain Score:??5?? O2 Therapy:??Room air?? Skin warm and dry, neck supple without adenopathy.?? Lungs clear, heart regular. ??Abdomen soft.?? I do not feel an inguinal hernia. Assessment/Plan Ordered: Dextrose 5% in Lactated Ringers Injection 500 mL, Total Volume (mL): 500, 500 mL, Soln-IV, IV, 30 mL/hr, Start Date: 10/21/23 9:13:00 EDT, 137.5 kg, Populate Charting Weight From Order, 2.68, m2 Valium, 2.5 mg = 0.5 mL, IV Push, Soln, every 2 min for 10 times, PRN sedation, First Dose: 10/21/23 8:31:00 EDT, Stop Date: Limited # of times, Physician Stop, Routine Valium, 5 mg = 1 mL, IV Push, Soln, every 2 min for 10 times, PRN sedation, First Dose: 10/21/23 8:31:00 EDT, Stop Date: Limited # of times, Physician Stop, Routine Valium, 7.5 mg = 1.5 mL, IV Push, Soln, every 2 min for 10 times, PRN sedation, First Dose: 10/21/23 8:31:00 EDT, Stop Date: Limited # of times, Physician Stop, Routine Valium, 10 mg = 2 mL, IV Push, Soln, every 2 min for 10 times, PRN sedation, First Dose: 10/21/23 8:31:00 EDT, Stop Date: Limited # of times, Physician Stop, Routine fentaNYL, 25 mcg = 0.5 mL, IV Push, Soln, every 2 min for 12 times, PRN sedation, First Dose: 10/21/23 8:31:00 EDT, Stop Date: Limited # of times, Physician Stop, Routine fentaNYL, 50 mcg = 1 mL, IV Push, Soln, every 2 min for 12 times, PRN sedation, First Dose: 10/21/23 8:31:00 EDT, Stop Date: Limited # of times, Physician Stop, Routine fentaNYL, 75 mcg = 1.5 mL, IV Push, Soln, every 2 min for 12 times, PRN sedation, First Dose: 10/21/23 8:31:00 EDT, Stop Date: Limited # of times, Physician Stop, Routine fentaNYL, 100 mcg = 2 mL, IV Push, Soln, every 2 min for 12 times, PRN sedation, First Dose: 10/21/23 8:31:00 EDT, Stop Date: Limited # of times, Physician Stop, Routine flumazenil, 0.2 mg = 2 mL, IV Push, Soln, As Directed for 10 times, PRN sedation, Administer over: 15 seconds, First Dose: 10/21/23 8:31:00 EDT, Stop Date: Limited # of times, Physician Stop, Routine lidocaine 1% injectable solution, 1 mg 0.1 mL, Intradermal, Soln, As Directed, PRN other (see comment), First Dose: 10/21/23 9:13:00 EDT, Routine Versed, 1 mg = 1 mL, IV Push, Soln, every 2 min for 10 times, PRN sedation, First Dose: 10/21/23 8:31:00 EDT, Stop Date: Limited # of times, Physician Stop, Routine Versed, 2 mg = 2 mL, IV Push, Soln, every 2 min for 10 times, PRN sedation, First Dose: 10/21/23 8:31:00 EDT, Stop Date: Limited # of times, Physician Stop, Routine Versed, 3 mg = 3 mL, IV Push, Soln, every 2 min for 10 times, PRN sedation, First Dose: 10/21/23 8:31:00 EDT, Stop Date: Limited # of times, Physician Stop, Routine Versed, 4 mg = 4 mL, IV Push, Soln, every 2 min for 10 times, PRN sedation, First Dose: 10/21/23 8:31:00 EDT, Stop Date: Limited # of times, Physician Stop, Routine naloxone, 0.08 mg = 0.2 mL, IV Push, Soln, every 2 min for 10 times, PRN sedation, First Dose: 10/21/23 8:31:00 EDT, Stop Date: Limited # of times, Physician Stop, Routine NPO, 10/21/23 9:13:00 EDT, Constant Indicator Obtain Surgical Consent, 10/21/23 9:13:00 EDT, Colonoscopy Peripheral IV Insertion, 10/21/23 9:13:00 EDT Proceed with colonoscopy, procedure indications and risks discussed. ??Consent signed and on the chart. Problem List/Past Medical History Ongoing Arthropathy Asthma [...] of legs Historical Insomnia Phobia Procedure/Surgical History ???Repair of inguinal hernia (02/02/2017)???Colonoscopy (03/20/2015)???bilateral Arthroscopic knee operation (08/04/2011) Medications Inpatient Dextrose 5% in Lactated Ringers Injection 500 mL, 500 mL, IV fentaNYL, 25 mcg= 0.5 mL, IV Push, every 2 min, PRN fentaNYL, 50 mcg= 1 mL, IV Push, every 2 min, PRN fentaNYL, 75 mcg= 1.5 mL, IV Push, every 2 min, PRN fentaNYL, 100 mcg= 2 mL, IV Push, every 2 min, PRN flumazenil, 0.2 mg= 2 mL, IV Push, As Directed, PRN lidocaine 1% injectable solution, 1 mg= 0.1 mL, Intradermal, As Directed, PRN naloxone, 0.08 mg= 0.2 mL, IV Push, every 2 min, PRN Valium, 2.5 mg= 0.5 mL, IV Push, every 2 min, PRN Valium, 5 mg= 1 mL, IV Push, every 2 min, PRN Valium, 7.5 mg= 1.5 mL, IV Push, every 2 min, PRN Valium, 10 mg= 2 mL, IV Push, every 2 min, PRN Versed, 1 mg= 1 mL, IV Push, every 2 min, PRN Versed, 2 mg= 2 mL, IV Push, every 2 min, PRN Versed, 3 mg= 3 mL, IV Push, every 2 min, PRN Versed, 4 mg= 4 mL, IV Push, every 2 min, PRN Home amLODIPine 10 mg oral tablet, 10 mg= 1 tab, Oral, Daily betamethasone dipropionate 0.05% topical cream, 1 [place], Topical, BID, 1 refills bisacodyl 5 mg oral tablet, See Instructions DULoxetine 20 mg oral delayed release capsule, 20 mg= 1 cap, Oral, BID gabapentin 300 mg oral capsule, 300 mg= 1 cap, Oral, TID, 5 refills lisinopril 20 mg oral tablet, 20 mg= 1 tab, Oral, Daily, 3 refills magnesium gluconate 500 mg oral tablet, 500 mg= 1 tab, Oral, Daily metFORMIN 500 mg oral tablet, extended release methylphenidate 20 mg/8 hr oral tablet, extended release, 20 mg= 1 tab, Oral, BID MiraLax oral powder for reconstitution, 238 g, Oral, Daily traZODone 50 mg oral tablet, 50 mg= 1 tab, Oral, every night at bedtime Allergies Chantix??(Anger) Wellbutrin??(Anger, Hallucinations) nicotine??(Rash) traMADol??(Angry outburst, Fatigue, Nausea, Headache) Social History Alcohol Never Electronic Cigarette/Vaping Electronic Cigarette Use: Never. Home/Environment Lives with Spouse. Feels unsafe at home: No. Nutrition/Health Caffeine intake amount: 2 cups coffee daily. Substance Use Never Tobacco Former tobacco user Tobacco Use:. Quit smoking Mar 2022 per day. Family History Cancer: Other.Negative: Other. Heart disease: Mother and Father. Immunizations Vaccine Date Status tetanus/diphth/pertuss (Tdap) adult/adol 10/24/2010 Recorded tetanus-diphth toxoids (Td) adult/adol 03/20/2006 Recorded tetanus-diphth toxoids (Td) adult/adol 11/18/1995 Recorded Electronically Signed on 10/21/23 09:24 AM [facility] Patient Care team information Care Team Personnel Name: Luiz Lyn MD Position: Physician Member Role: Primary Care Physician Address: Address: [address] [place] [id number]- Care Team Related Persons Name: NIKKO ZAMORA Address: Home [address] [place], [id number]
[2024-02-18 18:12] LABS: Hemoglobin A1C 6.2 % (<5.7)
== END 2024-02-18 17:58 | disposition home or self-care (01) ==
LOC: LBN 17:57
PROVIDERS: Visit Provider Nurse Practitioner Family
DX: E11.9 Type 2 diabetes mellitus without complications (principal)
CPT/HCPCS: 83036

== ENCOUNTER 2025-05-24 06:00 | Day surgery (SDC) | payer MEDICAID, SELFPAY ==
[2025-05-24] MEDS: Cephalexin 500 MG CAP 1000 MG PO (06:34)
[2025-05-24 06:39] VITALS: BP 117/65; PULSE 73; RESP 16; TEMP 36.4; O2SAT 96
--- NOTE | 2025-05-24 07:08 | PDOC.DSDIS_ITS ---
Date of service: 05/24/25 Discharge Plan Disposition Patient Disposition: Home Condition: Good Discharge Details Reason For Visit: L ECTR Attending Provider: Tom Garrido Primary Care Provider: Yissel Painter Home Meds and New Rx's Prescriptions: New acetaminophen 500 mg tablet 1,000 mg PO TID Qty: 90 0RF ibuprofen 600 mg tablet 600 mg PO TID PRN (Reason: pain) Qty: 90 0RF Continued Zepbound 10 mg/0.5 mL pen injector 10 mg subcut QWEEK methylphenidate HCl 5 mg tablet 5 mg PO BID melatonin 10 mg capsule 10 mg PO HS PRN trazodone 100 mg tablet 100 mg PO QHS PRN hydrochlorothiazide 50 mg tablet 50 mg PO DAILY amlodipine 10 mg tablet 10 mg PO DAILY gabapentin 300 mg capsule 300 mg PO TID lisinopril 40 mg tablet 40 mg PO DAILY albuterol sulfate [Ventolin HFA] 90 mcg/actuation HFA aerosol inhaler 2 puff inhalation 6XD duloxetine 30 mg capsule,delayed release(DR/EC) 30 mg PO DAILY atorvastatin [Lipitor] 40 mg tablet 40 mg PO DAILY methylphenidate HCl 20 mg tablet 20 mg PO BID magnesium 250 mg tablet 250 mg PO DAILY Lactobacillus acidophilus 25 million cell capsule PO metformin 1,000 mg tablet 1,000 mg PO BID Discharge Instructions Stand Alone Forms: Hema Paul Tunnel Release, Portal Information Referrals: Tom Garrido MD [ [facility] STAFF PHYSICIAN, Orthopaedic Surgical] Activity:: Activity as Tolerated Remove Dressings/Wound Care:: 48 hours Shower/Bathe:: 48 hours Diet:: As Tolerated Discharge Orders Discharge Orders: Discharge Order (Routine); Ordered 05/24/25 Ordered By: Markus George DS: Diagnosis Discharge Diagnosis (1) Bilateral carpal tunnel syndrome: Status: Acute
--- NOTE | 2025-05-24 07:24 | ROE_ITS ---
Operative Note Operative Note PRE-OP DIAGNOSIS: Left Carpal Tunnel Syndrome POST-OP DIAGNOSIS: same PROCEDURE: Left Endoscopic Carpal Tunnel Release SURGEON: Tom Garrido ANESTHESIA TYPE: Local By Surgeon Refer to Anesthesia Record ESTIMATED BLOOD LOSS: 0 PATHOLOGY: none sent TOURNIQUET TIME: 6 COMPLICATIONS: None Patient was transported to: same day Patient's condition: stable Indications: I have seen Fuentes in clinic for symptoms of carpal tunnel syndrome. The numbness, tingling, and pain limited function. Clinical exam findings confirmed the diagnosis of carpal tunnel syndrome. Nonoperative measures such as bracing, time, activity modifications had been tried but disability and pain persisted. I discussed carpal tunnel release with the patient. I reviewed the risks of the procedure to include, but not limited to, bleeding, infection, pain, stiffness, incomplete release, damage to nerves or vessels, persistent numbness, recurrence. Despite these risks, the patient elected to proceed. Findings: There was tightened carpal tunnel. This was dilated and released successfully with the endoscopic with increased space within the tunnel. The antebrachial fascia was released proximally freeing the median nerve at the wrist. Procedure Description: Fuentes was greeted in the preoperative holding area where the correct side was identified and marked. The consent was reviewed with the patient and signed. The history and physical was updated. All questions were answered. He was taken back to the operating room. The patient was placed into the supine position on the operating room table with the left arm on an arm board. A nonsterile tourniquet was placed high onto the arm. All bony prominences were well padded. Prophylactic antibiotics in the form of Cephalexin were administered in DSU. The left arm was then prepped with Chloraprep and draped in a standard fashion with stockinette and extremity drape. A timeout to confirm correct identity, side and site, procedure, allergies, anesthesia, and medical concerns was performed. The surgical site was marked in the volar wrist creases in line with the radial border of the fourth ray. This area was anesthetized with 1% Lidocaine with Epinephrine, buffered with sodium bicarbonate. The limb was then exsanguinated with an Esmarch. The skin was incised with a 15 blade, approximately 1cm. The skin only was cut and the deeper tissue was dissected bluntly with a tenotomy scissor, avoiding passing nerve and venous structures. The fascia was penetrated and opened bluntly. A two-prong skin hook was placed under this proximal fascial edge. A series of hamate finders were used to identify and dilate the carpal tunnel. Synovial elevator was used to free synovial attachments to the underside of the transverse carpal ligament. My thumb was kept in the palm to shea the distal extent of the carpal tunnel and correctly position the hand. The Microaire endoscope was inserted without difficulty and without resistance. Excellent visualization showed horizontally running fibers of the transverse carpal ligament (TCL). The distal extent of the TCL was visualized and the end of the scope palpated with the thumb. The blade was elevated and withdrawn from distal to proximal. The TCL was split into two se parated flaps. The endoscope was reinserted to confirm complete release and any remnant ligament was incised. The scope was withdrawn and the proximal aspect of the carpal tunnel was grossly inspected and appeared release with the median nerve visible. The antebrachial fascia at the level of the wrist was then freed from the overlying skin and then the underlying median nerve with blunt dissection. This was transected longitudinally for about 3cm proximal to the wrist incision. The wound was then irrigated with easy flow of irrigant distally and proximally. The incision was closed with a single 4-0 Nylon suture. The wound was dressed with Xeroform, Gauze, Kerlix and Rell. The tourniquet was deflated with the initial dressing and held with some pressure. Blood flow returned easily to all digits with capillary refill less than 2 seconds. The patient tolerated the procedure well and was returned to the Same Day Surgery area in a stable condition suffering no known complication. Date of Procedure: 05/24/25
[2025-05-24] MEDS: Lidocaine 1% Pres-Free W/EPI 1/200,000 10 ML VIAL (07:33)
[2025-05-24] MEDS: Sodium Bicarbonate 50 MEQ/50 ML VIAL (07:33)
[2025-05-24 07:48] VITALS: BP 96/61; PULSE 85; RESP 16; TEMP 36.5; O2SAT 94
== END 2025-05-24 08:11 | disposition home or self-care (01) ==
PROVIDERS: PCP Nurse Practitioner Family; Visit Provider Student in an Organized Health Care Education/Training Program
PROC: 01N54ZZ Release Median Nerve, Percutaneous Endoscopic Approach (ICD-10-PCS; CPT 29848; principal; 2025-05-24 07:30)
DX: G56.02 Carpal tunnel syndrome, left upper limb (principal)
CPT/HCPCS: 29848; J2004

== ENCOUNTER 2025-06-13 06:10 | Day surgery (SDC) | payer MEDICAID, SELFPAY ==
[2025-06-13 06:40] VITALS: BP 109/65; PULSE 75; RESP 18; TEMP 36.3; O2SAT 95
[2025-06-13] MEDS: Cephalexin 500 MG CAP 1000 MG PO (06:48)
--- NOTE | 2025-06-13 07:03 | W.PM.DSUDISC ---
Date of service: 06/13/25 Discharge Plan Disposition Patient Disposition: Home Condition: Good Discharge Details Reason For Visit: Right carpal tunnel syndrome Attending Provider: Tom Garrido Primary Care Provider: Yissel Painter Home Meds and New Rx's Prescriptions: New hydrocodone-acetaminophen 5-325 mg tablet 1 tab PO Q6H PRN (Reason: severe pain) Qty: 4 0RF Rx Instructions: Take one tablet up to every 6 hours as needed for severe postoperative pain Continued Zepbound 10 mg/0.5 mL pen injector 10 mg subcut QWEEK methylphenidate HCl 5 mg tablet 5 mg PO BID melatonin 10 mg capsule 10 mg PO HS PRN trazodone 100 mg tablet 100 mg PO QHS PRN hydrochlorothiazide 50 mg tablet 50 mg PO DAILY amlodipine 10 mg tablet 10 mg PO DAILY gabapentin 300 mg capsule 300 mg PO TID lisinopril 40 mg tablet 40 mg PO DAILY albuterol sulfate [Ventolin HFA] 90 mcg/actuation HFA aerosol inhaler 2 puff inhalation 6XD duloxetine 30 mg capsule,delayed release(DR/EC) 30 mg PO DAILY atorvastatin [Lipitor] 40 mg tablet 40 mg PO DAILY methylphenidate HCl 20 mg tablet 20 mg PO BID magnesium 250 mg tablet 250 mg PO DAILY Lactobacillus acidophilus 25 million cell capsule PO metformin 1,000 mg tablet 1,000 mg PO BID acetaminophen 500 mg tablet 1,000 mg PO TID Qty: 90 0RF ibuprofen 600 mg tablet 600 mg PO TID PRN (Reason: pain) Qty: 90 0RF Discharge Instructions Stand Alone Forms: Hema Paul Tunnel Release, Portal Information Activity:: Elevate Remove Dressings/Wound Care:: 48 hours Shower/Bathe:: 48 hours Diet:: As Tolerated Discharge Orders Discharge Orders: Discharge Order (Routine); Ordered 06/13/25 Ordered By: Ijeoma Graff
[2025-06-13] MEDS: Lidocaine 1% Multi-Dose W/EPI 1/100,000 50 ML VIAL (07:34)
[2025-06-13] MEDS: Sodium Bicarbonate 50 MEQ/50 ML VIAL (07:34)
[2025-06-13 08:01] VITALS: BP 120/92; PULSE 75; RESP 18; TEMP 36.2; O2SAT 95
--- NOTE | 2025-06-13 09:10 | ROE_ITS ---
Operative Note Operative Note PRE-OP DIAGNOSIS: Right Carpal Tunnel Syndrome POST-OP DIAGNOSIS: same PROCEDURE: Right Endoscopic Carpal Tunnel Release SURGEON: Tom Garrido ANESTHESIA TYPE: Local By Surgeon Refer to Anesthesia Record ESTIMATED BLOOD LOSS: 0 PATHOLOGY: none sent TOURNIQUET TIME: 12 COMPLICATIONS: None Patient was transported to: same day Patient's condition: stable Indications: I have seen Fuentes in clinic for symptoms of carpal tunnel syndrome. The numbness, tingling, and pain limited function. Clinical exam findings confirmed the diagnosis of carpal tunnel syndrome. Nonoperative measures such as bracing, time, activity modifications had been tried but disability and pain persisted. He did well from carpal tunnel release on the left side. I discussed carpal tunnel release with the patient. I reviewed the risks of the procedure to include, but not limited to, bleeding, infection, pain, stiffness, incomplete release, damage to nerves or vessels, persistent numbness, recurrence. Despite these risks, the patient elected to proceed. 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 This was resected out of the way. There was tightened carpal tunnel. This was dilated and released successfully with the endoscopic with increased space within the tunnel. The antebrachial fascia was released proximally freeing the median nerve at the wrist. Procedure Description: Fuentes was greeted in the preoperative holding area where the correct side was identified and marked. The consent was reviewed with the patient and signed. The history and physical was updated. All questions were answered. He was taken back to the operating room. The patient was placed into the supine position on the operating room table with the right arm on an arm board. A nonsterile tourniquet was placed high onto the arm. All bony prominences were well padded. Prophylactic antibiotics in the form of Cephalexin were administered in DSU. The right arm was then prepped with Chloraprep and draped in a standard fashion with stockinette and extremity drape. A timeout to confirm correct identity, side and site, procedure, allergies, anesthesia, and medical concerns was performed. The surgical site was marked in the volar wrist creases in line with the radial border of the fourth ray. This area was anesthetized with approximately 10cc of 1% Lidocaine with Epinephrine, buffered with Sodium Bicarbonate. The limb was then exsanguinated with an Esmarch. The skin was incised with a 15 blade, approximately 1cm. The skin only was cut and the deeper tissue was dissected bluntly with a tenotomy scissor, avoiding passing nerve and venous structures. Immediately, there was a muscle belly present. This was quite large extending both radial and ulnar to the surgical site. Dissection was used to move the muscle and ulnar direction and thus exposing the deeper volar forearm fascia. The fascia was penetrated and opened bluntly. A two-prong skin hook was placed under this proximal fascial edge. A series of hamate finders were used to identify and dilate the carpal tunnel. Synovial elevator was used to free synovial attachments to the underside of the transverse carpal ligament. My thumb was kept in the palm to shea the distal extent of the carpal tunnel and correctly position the hand. The Microaire endoscope was inserted without difficulty and without resistance. Excellent visualization showed horizontally running fibers of the transverse carpal ligament (TCL). The distal extent of the TCL was visualized and the end of the scope palpated with the thumb. The blade was elevated and withdrawn from distal to proximal. The TCL was split into two flaps. There was a notable amount of synovitis within the carpal tunnel which did make visualization somewhat challenging as it wanted to entrapped within the scope. The endoscope was reinserted to confirm complete release and any remnant ligament was incised. The scope was withdrawn and the proximal aspect of the carpal tunnel was grossly inspected and appeared release with the median nerve visible. The antebrachial fascia at the level of the wrist was then freed from the overlying skin and then the underlying median nerve with blunt dissection. This was transected longitudinally for about 3cm proximal to the wrist incision. The wound was then irrigated with easy flow of irrigant distally and proximally. The incision was closed with a single 4-0 Nylon suture. The wound was dressed with Xeroform, Gauze, Kerlix and Rell. The tourniquet was deflated with the initial dressing and held with some pressure. Blood flow returned easily to all digits with capillary refill less than 2 seconds. The patient tolerated the procedure well and was returned to the Same Day Surgery area in a stable c ondition suffering no known complication. Date of Procedure: 06/13/25
== END 2025-06-13 08:16 | disposition home or self-care (01) ==
PROVIDERS: PCP Nurse Practitioner Family; Visit Provider Student in an Organized Health Care Education/Training Program
PROC: 01N54ZZ Release Median Nerve, Percutaneous Endoscopic Approach (ICD-10-PCS; CPT 29848; principal; 2025-06-13 07:30)
DX: G56.01 Carpal tunnel syndrome, right upper limb (principal)
CPT/HCPCS: 29848; J2004